=== PATIENT | male | born 1960 | race Hispanic/Latino ===

== ENCOUNTER 2022-01-28 21:11 | Emergency (ER) | payer BC, OTHER ==
--- OUTSIDE RECORDS SUMMARY | 2022-01-28 21:15 | XMS REPORT | Continuity of Care Document ---
:1960 Author Organization [facility] t Address Critical access hospital [facility] [facility] [address] [place] [id number] Care Team Providers Name Role Phone STEPHEN BARAJAS Attending Clinician Unavailable Problems This patient has no known problems. Allergies, Adverse Reactions, Alerts This patient has no known allergies or adverse reactions. Medications This patient has no known medications. Procedures This patient has no known procedures. Results Test Description Test Time Test Comments Results Result Comments Source B-TYPE NATRIURETIC FACTOR (BNP) 2017-05-26 07:35:00 Test Item Value Reference Range Interpretation Comme nts B-TYPE NATRIURETIC PEPTIDE (BEAKER) (test code = 700) < pg/mL 0-100 [id number] 07:33:00 Test Item Value Reference Range Interpretation Comments MAGNESIUM (BEAKER) (test code = 2.1 mg/dL 1.6-2.6 627) COMPREHENSIVE METABOLIC [id number] 07:33:00 Test Item Value Reference Range Interpretation Comments TOTAL PROTEIN 7.9 gm/dL 6.0-8.3 (BEAKER) (test code = 770) ALBUMIN (BEAKER) 4.0 g/dL 3.5-5.0 (test code = 1145) ALKALINE PHOSPHATASE 110 U/L 40-150 (BEAKER) (test code = 346) BILIRUBIN TOTAL 0.3 mg/dL 0.2-1.2 (BEAKER) (test code = 377) SODIUM (BEAKER) (test 136 meq/L 136-145 code = 381) POTASSIUM (BEAKER) 4.1 meq/L 3.5-5.1 (test code = 379) CHLORIDE (BEAKER) 100 meq/L 98-107 (test code = 382) CO2 (BEAKER) (test 24 meq/L 22-29 code = 355) BLOOD UREA NITROGEN 15 mg/dL 7-21 (BEAKER) (test code = 354) CREATININE (BEAKER) 0.98 mg/dL 0.57-1.25 (test code = 358) GLUCOSE RANDOM 312 mg/dL 70-105 H (BEAKER) (test code = 652) CALCIUM (BEAKER) 9.6 mg/dL 8.4-10.2 (test code = 697) AST (SGOT) (BEAKER) 13 U/L 5-34 (test code = 353) ALT (SGPT) (BEAKER) 15 U/L 6-55 (test code = 347) EGFR (BEAKER) (test 79 mL/min/1.73 ESTIMA JORGE GFR IS code = 1092) sq m NOT ACCURATE CREATININE CLEARANCE IN PREDICTING GLOMERULAR FILTRATION RATE . ESTIMATED GFR I S NOT APPLICABLE FOR DIALYSIS PATIEN TS. TROPONIN [id number] 07:27:00 Test Item Value Reference Range Interpretation Comments TROPONIN I (BEAKER) (test code = 397) < ng/mL 0.00-0.03 Effective 10/13/2014: Reference Range ChangeNew: 0.00-0.03 Previous 0.00- 0.15Troponin I (TnI) levels must be interpreted in the context of the presenting symptoms and the clinical findings. Elevated TnI levels indicate myocardial damage, but are not specific for ischemic heart disease. Elevated TnI levels are seen in patients with other cardiac conditions (including myocarditis and congestive heartfailure), and slight TnI elevations occur in patients with other conditions, including sepsis, renalfailure, acidosis, acute neurological disease, and persistent tachyarrhythmia.BLOOD GAS, [id number] 07:07:00 Test Item Value Reference Range Interpretation Comments PH VENOUS (BEAKER) (test code = 7.41 7.32-7.42 701) PCO2 VENOUS (BEAKER) (test code = 46 mmHg 41-51 755) PO2 VENOUS (BEAKER) (test code = 33 mmHg 25-40 702) O2 SATURATION VENOUS (BEAKER) 67.5 % 40.0-70.0 (test code = 703) HCO3 VENOUS (BEAKER) (test code = 29 mmol/L 21-29 705) BASE EXCESS VENOUS (BEAKER) (test 2.7 mmol/L -2.0-3.0 code = 704) PATIENT TEMPERATURE (BEAKER) (test 36.0 C code = 1818) FIO2 (BEAKER) (test code = 1819) 21.0 % KETONE, [id number] 07:06:00 Test Item Value Reference Range Interpretation Comments KETONES, BLOOD (BEAKER) (test code 0.6 mmol/L <0.4 H = 1103) CBC W/PLT COUNT & AUTO [id number] 07:05:00 Test Item Value Reference Range Interpretation Comments WHITE BLOOD CELL COUNT (BEAKER) 15.1 K/ L 4.0-10.0 H (test code = 775) RED BLOOD CELL COUNT (BEAKER) 4.99 M/ L 4.20-5.80 (test code = 761) HEMOGLOBIN (BEAKER) (test code = 14.3 GM/DL 13.0-16.8 410) HEMATOCRIT (BEAKER) (test code = 44.3 % 40.0-50.0 411) MEAN CORPUSCULAR VOLUME (BEAKER) 88.7 fL 82.0-98.0 (test code = 753) MEAN CORPUSCULAR HEMOGLOBIN 28.7 pg 27.0-33.0 (BEAKER) (test code = 751) MEAN CORPUSCULAR HEMOGLOBIN CONC 32.3 GM/DL 32.0-36.0 (BEAKER) (test code = 752) RED CELL DISTRIBUTION WIDTH 10.9 % 10.3-14.2 (BEAKER) (test code = 412) PLATELET COUNT (BEAKER) (test 480 K/CU MM 150-430 H code = 756) MEAN PLATELET VOLUME (BEAKER) 7.3 fL 6.5-10.5 (test code = 754) NUCLEATED RED BLOOD CELLS 0 /100 WBC 0-0 (BEAKER) (test code = 413) NEUTROPHILS RELATIVE PERCENT 71 % (BEAKER) (test code = 429) LYMPHOCYTES RELATIVE PERCENT 20 % (BEAKER) (test code = 430) MONOCYTES RELATIVE PERCENT 7 % (BEAKER) (test code = 431) EOSINOPHILS RELATIVE PERCENT 2 % (BEAKER) (test code = 432) BASOPHILS RELATIVE PERCENT 0 % (BEAKER) (test code = 437) NEUTROPHILS ABSOLUTE COUNT 10.70 K/ L 1.80-8.00 H (BEAKER) (test code = 670) LYMPHOCYTES ABSOLUTE COUNT 2.95 K/ L 1.48-4.50 (BEAKER) (test code = 414) MONOCYTES ABSOLUTE COUNT (BEAKER) 1.07 K/ L 0.00-1.30 (test code = 415) EOSINOPHILS ABSOLUTE COUNT 0.30 K/ L 0.00-0.50 (BEAKER) (test code = 416) BASOPHILS ABSOLUTE COUNT (BEAKER) 0.06 K/ L 0.00-0.20 (test code = 417) 0.00
[2022-01-28] MEDS ORDERED: NA CHLORIDE 0.9% 1,000 ML ONE (22:08)
[2022-01-28] MEDS ORDERED: HYDROCODONE/APAP 5/325 MG TAB ONE (22:08)
[2022-01-28] MEDS ORDERED: ONDANSETRON 4 MG/2 ML VIAL ONE (22:08)
[2022-01-28 22:43] LABS: Absolute Lymphocytes (CBC) 1.5 K/uL (0.7-4.9); Lymphocytes % 11.4 % (15.3-44.8); MPV 8.9 fL (7.6-11.3); RBC Red Blood Cell Count 4.95 M/uL (4.33-5.43)
[2022-01-28 22:48] LABS: Protime INR 1.05
[2022-01-28 23:03] LABS: ALT/SGPT 20 U/L (12-78); AST/SGOT 11 U/L (15-37); Albumin 3.3 g/dL (3.4-5.0); Alkaline Phosphatase 88 U/L (45-117); BUN Blood Urea Nitrogen 16 mg/dL (7-18); Bicarbonate 25 mmol/L (21-32); Bilirubin Direct 0.2 mg/dL (0-0.2); Bilirubin Total 0.8 mg/dL (0.2-1.0); Glucose Level 223 mg/dL (74-106); Potassium 3.8 mmol/L (3.5-5.1); Protein, Total 7.6 g/dL (6.4-8.2); Sodium Level 136 mmol/L (136-145)
[2022-01-28 23:18] LABS: Urine Blood Negative (Negative); Urine Glucose 2+ (Negative); Urine Protein 1+ (Negative); Urine Specific Gravity 1.025 (1.005-1.030)
--- NOTE | 2022-01-29 00:02 | ER ---
Nurse's Notes [facility] Name: Fox Rosas Age: 62 yrs Sex: Male : 1960 Arrival Date: 01/28/2022 Time: 21:16 Bed 5 Private MD: Diagnosis: Acute sinusitis, unspecified;Toothache Presentation: 01/28 21:33 Chief complaint: Patient states: "My left side of my check hurts. I don't know if it is tw5 sinus, but I also have a toothache at that side as well. It is making the whole left side of my head hurt. It radiates to the back of my neck.". Chief complaint: Patient states: "I was also taking my 's Augmentin to see if that would help. ". Coronavirus screen: Vaccine status: Patient reports being unvaccinated. Ebola Screen: Patient negative for fever greater than or equal to 101.5 degrees Fahrenheit, and additional compatible Ebola Virus Disease symptoms Patient denies exposure to infectious person. Patient denies travel to an Ebola-affected area in the 21 days before illness onset. Initial Sepsis Screen: Does the patient meet any 2 criteria? No. Patient's initial sepsis screen is negative. Does the patient have a suspected source of infection? No. Patient's initial sepsis screen is negative. Risk Assessment: Do you want to hurt yourself or someone else? Patient reports no desire to harm self or others. Onset of symptoms was January 26, 2022. 21:33 Acuity: MATTI 3 tw5 21:33 Method Of Arrival: Ambulatory tw5 Triage Assessment: 21:37 Headache History: Denies prior headaches. General: Appears uncomfortable, Behavior is tw5 calm, cooperative, appropriate for age. Pain: Pain currently is 8 out of 10 on a pain scale. Pain began 2-3 days ago. Also complains of photophobia. Neuro: Level of Consciousness is awake, alert, obeys commands, Oriented to person, place, time, situation. Historical: - Allergies: 21:37 No Known Allergies; tw5 - Home Meds: 21:37 insulin [Active]; tw5 - PMHx: 21:37 Diabetes mellitus; Hypercholesterolemia; Hypertensive disorder; tw5 - PSHx: 21:37 None; tw5 - Immunization history:: Flu vaccine status is unknown. - Social history:: Smoking status: Patient denies any tobacco usage or history of. Screenin:51 Abuse screen: Denies threats or abuse. Nutritional screening: No deficits noted. ll3 Tuberculosis screening: No symptoms or risk factors identified. 03 00:14 Fall Risk None identified. as6 Assessment: 01/28 21:48 General: Appears uncomfortable, Behavior is calm, cooperative. Pain: Complains of pain ll3 in forehead, left cheek and left presybeterian, Left Upper Jaw Pain currently is 8 out of 10 on a pain scale. Pain began 2-3 days ago. Is continuous. Neuro: Level of Consciousness is awake, alert, obeys commands, Oriented to person, place, time, situation, Reports dizziness, headache since 3 Days ago. Cardiovascular: Patient's skin is warm and dry. Respiratory: Respiratory effort is even, unlabored, Respiratory pattern is regular, symmetrical. EENT: Oral mucosa is moist. Poor dentition noted. States he has a tooth ache in left upper molar, swelling noted. Derm: Skin is pink, warm \\T\\ dry. Musculoskeletal: Circulation, motion, and sensation intact. 23:07 Reassessment: Patient and/or family updated on plan of care and expected duration. Pain ll3 level reassessed. Patient is alert, oriented x 3, equal unlabored respirations, skin warm/dry/pink. Patient states feeling better. Patient states symptoms have improved. Vital Signs: 21:33 BP 137 / 72; Pulse 85; Resp 18; Temp 99.5(O); Pulse Ox 96% on R/A; Weight 117.93 kg; tw5 Height 5 ft. 7 in. (170.18 cm); Pain 8/10; 23:18 BP 128 / 80; Pulse 88; Resp 17; Pulse Ox 97% on R/A; ll3 03 00:13 BP 128 / 85; Pulse 84; Resp 20 S; Pulse Ox 96% on R/A; as6 01/28 21:33 Body Mass Index 40.72 (117.93 kg, 170.18 cm) tw5 [place] Coma Score: 01/28 23:58 Eye Response: spontaneous(4). Verbal Response: oriented(5). Motor Response: obeys mh7 commands(6). Total: 15. ED Course: 21:16 Patient arrived in ED. ja2 21:37 Triage completed. tw5 21:37 Arm band placed on right wrist. tw5 21:39 Pavan Kim, DAVID is Primary Nurse. as6 21:43 Madan Curtis MD is Attending Physician. mh7 21:51 Patient has correct armband on for positive identification. Placed in gown. Bed in low ll3 position. Call light in reach. Side rails up X 1. Child being held by parent. 22:[address] ll3 22:30 Initial lab(s) drawn, by me, sent to lab. Inserted saline lock: 22 gauge in right ll3 antecubital area, using aseptic technique. Blood collected. 22:52 CT Head C Spine In Process Unspecified. EDMS 22:53 CT Maxillofacial W/cont In Process Unspecified. EDMS 23:59 Kasandra Centeno MD is Referral Physician. 7 01/29 00:00 Narendra Tam DDS is Referral Physician. 7 00:14 No provider procedures requiring assistance completed. IV discontinued, intact, as6 bleeding controlled, No redness/swelling at site. Pressure dressing applied. Administered Medications: 01/28 22:15 Drug: NS 0.9% 1000 ml Route: IV; Rate: 1000 ml; Site: right antecubital; ll3 01/29 00:13 Follow up: Response: No adverse reaction; IV Status: Completed infusion; IV Intake: as6 1000ml 01/28 22:15 Drug: [place] (HYDROcodone-acetaminophen) 5 mg-325 mg 1 tabs Route: PO; ll3 01/29 00:13 Follow up: Response: No adverse reaction; RASS: Alert and Calm (0) as6 01/28 22:18 Drug: Zofran (Ondansetron) 4 mg Route: IVP; Site: right antecubital; ll3 03 00:13 Follow up: Response: No adverse reaction as6 00:10 Drug: LevaQUIN (levofloxacin) 500 mg Route: PO; as6 00:12 Follow up: Response: No adverse reaction as6 Intake: 00:13 IV: 1000ml; Total: 1000ml. as6 Outcome: 00:01 Discharge ordered by . mh7 00:14 Discharged to home ambulatory, with family. as6 00:14 Condition: stable 00:14 Discharge instructions given to patient, Instructed on discharge instructions, follow up and referral plans. medication usage, Demonstrated understanding of instructions, follow-up care, medications, Prescriptions given X 2. 00:14 Patient left the ED. as6 Signatures: Dispatcher [employer] Madan Almonte MD MD mh7 Elena Jackson Tiffany tw5 Pavan Kim RN RN as6 Tho Chambers RN RN ll3
--- NOTE | 2022-01-29 00:03 | EDPHYS ---
Physician Documentation [facility] Name: Fox Rosas Age: 62 yrs Sex: Male : 1960 Arrival Date: 01/28/2022 Time: 21:16 Bed 5 Private MD: ED Physician Madan Curtis HPI: 01/28 22:14 This 62 yrs old Male presents to ER via Ambulatory with complaints of Headache.mh7 22:14 The patient complains of pain to the left cheek, left side of head. The patient mh7 describes the headache as intermittent, throbbing. Onset: The symptoms/episode began/occurred 3 day(s) ago. Associated signs and symptoms: Pertinent positives: nausea, Left upper tooth pain, Pertinent negatives: altered mental status, dizziness, fever, malaise, neck stiffness, paresthesias, Photophobia rash, sinus congestion, sinus tenderness, vision changes, vision loss, vomiting, weakness, vertigo. Severity of symptoms: At its worst the pain was moderate, 2 day(s) ago, in the emergency department the pain has improved, moderately. Headache History: The patient has had previous headaches and this one is less severe than previous episodes. The symptoms are alleviated by nothing. the symptoms are aggravated by foods, Touching area, chewing. Historical: - Allergies: 21:37 No Known Allergies; tw5 - Home Meds: 21:37 insulin [Active]; tw5 - PMHx: 21:37 Diabetes mellitus; Hypercholesterolemia; Hypertensive disorder; tw5 - PSHx: 21:37 None; tw5 - Immunization history:: Flu vaccine status is unknown. - Social history:: Smoking status: Patient denies any tobacco usage or history of. ROS: 22:14 Constitutional: Negative for fever, chills, and weight loss, Eyes: Negative for injury, mh7 pain, redness, and discharge, Neck: Negative for injury, pain, and swelling, Cardiovascular: Negative for chest pain, palpitations, and edema, Respiratory: Negative for shortness of breath, cough, wheezing, and pleuritic chest pain. 22:14 Back: Negative for injury and pain, : Negative for injury, bleeding, discharge, and swelling, MS/Extremity: Negative for injury and deformity, Skin: Negative for injury, rash, and discoloration. 22:14 Psych: Negative for depression, anxiety, suicide ideation, homicidal ideation, and hallucinations, Allergy/Immunology: Negative for hives, rash, and allergies, Endocrine: Negative for neck swelling, polydipsia, polyuria, polyphagia, and marked weight changes, Hematologic/Lymphatic: Negative for swollen nodes, abnormal bleeding, and unusual bruising. 22:14 Abdomen/GI: Negative for abdominal pain, vomiting, diarrhea, constipation, abdominal cramps, abdominal distension, anorexia, dysphagia, hematemesis, black/tarry stool, rectal pain, rectal bleeding, bowel incontinence, flatulence. 22:14 Neuro: Negative for altered mental status, dizziness, gait disturbance, hearing loss, loss of consciousness, numbness, seizure activity, speech changes, syncope, near syncope, tingling, tinnitus, tremor, visual changes, weakness. Exam: 22:14 Constitutional: This is a well developed, well nourished patient who is awake, alert, mh7 and in no acute distress. 22:14 Eyes: Pupils equal round and reactive to light, extra-ocular motions intact. Lids and lashes normal. Conjunctiva and sclera are non-icteric and not injected. Cornea within normal limits. Periorbital areas with no swelling, redness, or edema. 22:14 Chest/axilla: Normal chest wall appearance and motion. Nontender with no deformity. No lesions are appreciated. Cardiovascular: Regular rate and rhythm with a normal S1 and S2. No gallops, murmurs, or rubs. Normal PMI, no JVD. No pulse deficits. Respiratory: Lungs have equal breath sounds bilaterally, clear to auscultation and percussion. No rales, rhonchi or wheezes noted. No increased work of breathing, no retractions or nasal flaring. Abdomen/GI: Soft, non-tender, with normal bowel sounds. No distension or tympany. No guarding or rebound. No evidence of tenderness throughout. Back: No spinal tenderness. No costovertebral tenderness. Full range of motion. Skin: Warm, dry with normal turgor. Normal color with no rashes, no lesions, and no evidence of cellulitis. MS/ Extremity: Pulses equal, no cyanosis. Neurovascular intact. Full, normal range of motion. Neuro: Awake and alert, GCS 15, oriented to person, place, time, and situation. Cranial nerves II-XII grossly intact. Motor strength 5/5 in all extremities. Sensory grossly intact. Cerebellar exam normal. Normal gait. Psych: Awake, alert, with orientation to person, place and time. Behavior, mood, and affect are within normal limits. 22:14 Head/face: Noted is tenderness, that is moderate, of the left cheek. 22:14 Head/face: Noted is Left scalp tenderness. 22:14 ENT: External ear(s): are unremarkable, Ear canal(s): are normal, clear, TM's: are normal, Nose: is normal, Mouth: is normal, Posterior pharynx: is normal, airway is patent, Dental exam: abscess, is not appreciated, cellulitis, is not appreciated, dental caries, that is mild, specifically in the upper right second molar (#2), upper right first molar (#3), upper left second molar (#15), upper left third molar (#16), lower right second molar (#31) and lower right third molar (#32), fractured teeth are noted, not appreciated, gum swelling, not appreciated, malocclusion, is not appreciated, pain, that is moderate, specifically in the upper left second molar (#15), Voice: is normal. 22:14 ENT: Nares patent. No nasal discharge, no septal abnormalities noted. Tympanic mh7 membranes are normal and external auditory canals are clear. Oropharynx with no redness, swelling, or masses, exudates, or evidence of obstruction, uvula midline. Mucous membranes moist. Neck: Trachea midline, no thyromegaly or masses palpated, and no cervical lymphadenopathy. Supple, full range of motion without nuchal rigidity, or vertebral point tenderness. No Meningismus. Vital Signs: 21:33 BP 137 / 72; Pulse 85; Resp 18; Temp 99.5(O); Pulse Ox 96% on R/A; Weight 117.93 kg; tw5 Height 5 ft. 7 in. (170.18 cm); Pain 8/10; 23:18 BP 128 / 80; Pulse 88; Resp 17; Pulse Ox 97% on R/A; ll3 0306 00:13 BP 128 / 85; Pulse 84; Resp 20 S; Pulse Ox 96% on R/A; as6 01/28 21:33 Body Mass Index 40.72 (117.93 kg, 170.18 cm) tw5 [place] Coma Score: 01/28 23:58 Eye Response: spontaneous(4). Verbal Response: oriented(5). Motor Response: obeys [facility] commands(6). Total: 15. MDM: 23:58 Differential diagnosis: cluster headache, migraine, sinusitis, tension headache, Dental mh7 pain. Data reviewed: vital signs, nurses notes, lab test result(s), CBC, electrolytes, urinalysis, radiologic studies, CT scan. Data interpreted: Pulse oximetry: on room air is 97 %. Interpretation: normal. Counseling: I had a detailed discussion with the patient and/or guardian regarding: the historical points, exam findings, and any diagnostic results supporting the discharge/admit diagnosis, lab results, radiology results, the need for outpatient follow up, an ENT specialist. Response to treatment: the patient's symptoms have resolved after treatment, the patient's blood pressure is in an acceptable range, mental status has returned to baseline, the patient no longer shows bradycardia, the patient is not short of breath, the patient is not tachycardic, the patient's pain is gone, the patient's temperature has normalized. 01/29 00:01 Patient medically screened. [facility] 01/28 21:54 Order name: CBC with Diff [facility] 01/28 21:54 Order name: Basic Metabolic Panel [facility] 01/28 21:54 Order name: Protime (+inr); Complete Time: 23:03 [facility] 01/28 21:54 Order name: Ptt, Activated; Complete Time: 23:03 [facility] 01/28 21:54 Order name: LFT's; Complete Time: 23:03 [facility] 01/28 21:55 Order name: CBC with Automated Diff; Complete Time: 23:03 [facility] 01/28 21:55 Order name: Basic Metabolic Panel; Complete Time: 23:03 [facility] 01/28 22:06 Order name: CT Head C Spine [facility] 01/28 22:06 Order name: CT Maxillofacial W/cont [facility] 01/28 23:17 Order name: Urine Dipstick-Ancillary; Complete Time: 23:36 [facility] 01/28 21:57 Order name: Saline Lock; Complete Time: 22:30 [facility] 01/28 23:04 Order name: Urine Dipstick-Ancillary (obtain specimen); Complete Time: 23:18 [facility] Administered Medications: 01/28 22:15 Drug: NS 0.9% 1000 ml Route: IV; Rate: 1000 ml; Site: right antecubital; ll3 01/29 00:13 Follow up: Response: No adverse reaction; IV Status: Completed infusion; IV Intake: as6 1000ml 01/28 22:15 Drug: [place] (HYDROcodone-acetaminophen) 5 mg-325 mg 1 tabs Route: PO; ll3 01/29 00:13 Follow up: Response: No adverse reaction; RASS: Alert and Calm (0) as6 01/28 22:18 Drug: Zofran (Ondansetron) 4 mg Route: IVP; Site: right antecubital; ll3 01/29 00:13 Follow up: Response: No adverse reaction as6 00:10 Drug: LevaQUIN (levofloxacin) 500 mg Route: PO; as6 00:12 Follow up: Response: No adverse reaction as6 Disposition Summary: 01/29/22 00:01 Discharge Ordered Location: Home [facility] Problem: new [facility] Symptoms: have improved [facility] Condition: Stable [facility] Diagnosis - Acute sinusitis, unspecified 7 - Toothache [facility] Followup: [facility] - With: Private Physician - When: 1 - 2 days - Reason: Worsening of condition, Recheck today's complaints, Continuance of care, Re-evaluation by your physician Followup: [facility] - With: Kasandra Centeno MD - When: 2 - 3 days - Reason: Worsening of condition, Recheck today's complaints Followup: [facility] - With: Narendra Tam DDS - When: 2 - 3 days - Reason: Worsening of condition, Recheck today's complaints Discharge Instructions: - Discharge Summary Sheet [facility] - Sinusitis, Adult, [id number] [facility] - Dental Pain, [id number] [facility] Forms: - Medication Reconciliation Form [facility] - Thank You Letter [facility] - Antibiotic Education [facility] - Prescription Opioid Use [facility] Prescriptions: - Ibuprofen 600 mg Oral Tablet - take 1 tablet by ORAL route every 8 hours As needed take with food; 15 tablet; 7 Refills: 0, Product Selection Permitted - levofloxacin 500 mg Oral Tablet - take 1 tablet by ORAL route once daily for 10 days; 10 tablet; Refills: 0, [facility] Product Selection Permitted Signatures: Dispatcher [employer] Madan Almonte MD MD mh7 Yocasta Somers tw5 Pavan Kim RN RN as6 Tho Chambers RN RN ll3 Corrections: (The following items were deleted from the chart) 00:06 00:01 Dental caries, unspecified [email or web address]
[2022-01-29] MEDS ORDERED: levoFLOXacin 250 MG TAB ONE (00:04)
[2022-01-29 00:43] VITALS: TEMP 99.5
[2022-01-29 00:46] VITALS: BP 128/85; O2SAT 96
--- NOTE | 2022-01-30 10:27 | RAD REPORT ---
EXAM DESCRIPTION: CT - [id number] - 01/29/2022 6:24 am CLINICAL HISTORY: 62 years Male PAIN COMPARISON: None. TECHNIQUE: Contiguous axial CT images obtained through the brain without IV contrast. Contiguous a xial images obtained through the cervical spine without IV contrast. Sagittal and coronal reformatted images obtained. This exam was performed according to our department optimization program which includes automated exp osure control, adjustment of the mA and/or kv according to patient size and/or use of iterative recon struction technique. FINDINGS: The ventricles and sulci appear unremarkable. No abnormal areas of decreased density are identified. No mass lesions. No acute hemorrhage. Opacification of the left maxillary sinus and multiple left ethmoid air cells. Mild mucosal thickenin g in the inferior left frontal sinus. The nasal turbinates appear thickened which may be from inflamm atory change. No depressed calvarial fractures. Straightening of the normal lordosis. Vertebral body alignment is unremarkable. No acute fractures. Mild degenerative changes. There does not appear to be significant spinal or foraminal stenosis. IMPRESSION: 1. No acute intracranial abnormality is identified. 2. No acute cervical spinal fracture is identified. 3. Left paranasal sinus inflammatory changes. Electronically signed by: Yoseph Renee MD 01/28/2022 11:10 PM [facility] Due to temporary technical issues with the PACS/Fluency reporting system, reports are being signed by the in house radiologist without review as a courtesy to ensure prompt reporting. The interpreting r adiologist is fully responsible for the content of the report.
--- NOTE | 2022-01-30 10:51 | RAD REPORT ---
EXAM DESCRIPTION: CT - Maxillofacial W/Cont - 01/29/2022 6:23 am CLINICAL HISTORY: 62 years,Male,FACIAL PAIN COMPARISON: None. TECHNIQUE: Contiguous axial images were obtained through the maxillofacial region following IV contr ast. Reformatted images obtained. This exam was performed according to our department optimization program which includes automated exp osure control, adjustment of the mA and/or kv according to patient size and/or use of iterative recon struction technique. FINDINGS: The visualized intracranial structures and post septal orbits appear unremarkable. There is opacification of the left maxillary sinus and multiple left ethmoid air cells. There is muco verna thickening in the inferior left frontal sinus. The left nasal turbinates appear enlarged which is likely from inflammatory change. No acute fracture is identified. Mild degenerative changes in the cervical spine. IMPRESSION: 1. There is opacification of the left maxillary sinus and multiple left ethmoid air ce lls. There is mucosal thickening in the inferior left frontal sinus. 2. The left nasal turbinates appear enlarged which is likely from inflammatory change. Electronically signed by: Yoseph Renee MD 01/28/2022 11:03 PM DEAN OF EDUCATION Due to temporary technical issues with the PACS/Fluency reporting system, reports are being signed by the in house radiologist without review as a courtesy to ensure prompt reporting. The interpreting r adiologist is fully responsible for the content of the report.
== END 2022-01-29 00:14 | disposition home or self-care (01) ==
LOC: ER 21:11
DX: J01.90 Acute sinusitis, unspecified (principal); K08.89 Other specified disorders of teeth and supporting structures; I10 Essential (primary) hypertension; E11.9 Type 2 diabetes mellitus without complications; Z79.4 Long term (current) use of insulin
CPT/HCPCS: 96361; 85025; 80048; 36415; 85610; 80076; 85730; 81003; 70450; 72125; 70487; 96374; 99284; Q9967; J7030; J2405

== ENCOUNTER → 2023-12-06 | Emergency (ER) | payer BC, OTHER ==
[~2023-12-06] MED LIST: MUPIROCIN 2% OINT 22GM TUBE TOP ONE
--- NOTE | 2023-12-06 18:17 | RAD REPORT ---
EXAM DESCRIPTION: RAD - Foot Right 3 View - 12/06/2023 4:58 pm CLINICAL HISTORY: right third toe pain COMPARISON: FOOT W OBLIQUES dated 04/17/2008 TECHNIQUE: Right foot, 3 views. FINDINGS: No fracture, dislocation or periosteal reaction. Moderate calcaneal spur. Soft tissue swelling along the medial foot. IMPRESSION: Soft tissue swelling, without acute osseous abnormality.
--- NOTE | 2023-12-06 18:46 | EDPHYS ---
Physician Documentation [facility] Name: Fox Rosas Age: 63 yrs Sex: Male : 1960 Arrival Date: 12/06/2023 Time: 15:32 Bed 10 Private MD: ED Physician Pily White HPI: 12/06 16:40 This 63 yrs old Male presents to ER via Ambulatory with complaints of Toe pain.cp 16:40 The patient presents with pain, that is acute. cp 16:40 The complaints affect the right third toe. Context: resulted from an unknown cause. cp Onset: The symptoms/episode began/occurred 3 day(s) ago. Associated signs and symptoms: Pertinent positives: pain open wound, swelling. Historical: - Allergies: 16:21 No Known Allergies; ph - PMHx: 16:21 diabetes mellitus; Hypercholesterolemia; Hypertensive disorder; Asthma; ph - Immunization history:: Client reports having NOT received the Covid vaccine. - Social history:: Smoking status: Patient denies any tobacco usage or history of. ROS: 16:45 MS/extremity: Positive for pain, swelling, tenderness, of the right third toe, Negative cp for injury or acute deformity, decreased range of motion, 16:45 Constitutional: Negative for body aches, chills, fever, cp 16:45 Cardiovascular: Negative for chest pain, palpitations, 16:45 Respiratory: Negative for cough, shortness of breath, wheezing, 16:45 All other systems are negative, Exam: 16:50 Constitutional: The patient appears in no acute distress, alert, awake, comfortable, cp non-toxic, well developed, well nourished, 16:50 Head/Face: Normocephalic, atraumatic. cp 16:50 Eyes: Periorbital structures: appear normal, Conjunctiva: normal, no exudate, no injection, Sclera: no appreciated abnormality, Lids and lashes: appear normal, bilaterally, 16:50 ENT: External ear(s): are unremarkable, Nose: is normal, Mouth: Lips: moist, Oral mucosa: pink and intact, moist, Posterior pharynx: is normal, airway is patent, no erythema, no exudate, 16:50 Chest/axilla: Inspection: normal, 16:50 Cardiovascular: Rate: normal, Rhythm: regular, 16:50 Respiratory: the patient does not display signs of respiratory distress, Respirations: normal, no use of accessory muscles, no retractions, labored breathing, is not present, Breath sounds: are clear throughout, no decreased breath sounds, no stridor, no wheezing, 16:50 Abdomen/GI: Exam negative for discomfort, distension, guarding, Inspection: abdomen appears normal, 16:50 Musculoskeletal/extremity: Extremities: noted in the right foot: tenderness, mild swelling, mild erythema noted of right third toe, small open wound noted plantar side distal phalanx with minimal drainage, Vital Signs: 16:18 BP 144 / 96; Pulse 85; Resp 17; Temp 98.2; Pulse Ox 95% on R/A; Weight 121.11 kg (R); ph Height 5 ft. 7 in. ; Pain 3/10; 16:18 Body Mass Index 41.82 (121.11 kg, 170.18 cm) ph 16:18 Pain Scale: Adult ph MDM: 16:24 Patient medically screened. cp 18:45 Data reviewed: vital signs, nurses notes, radiologic studies, plain films. cp 18:45 Differential diagnosis: fracture, cellulitis, abscess, osteomyelitis, sepsis. cp Consideration of Admission/Observation Escalation of care including admission/observation considered. Counseling: I had a detailed discussion with the patient and/or guardian regarding the historical points, exam findings, and any diagnostic results supporting the discharge/admit diagnosis, radiology results, the need for outpatient follow up, a general surgeon, to return to the emergency department if symptoms worsen or persist or if there are any questions or concerns that arise at home. 12/06 16:23 Order name: XRAY Foot RIGHT 3 View; Complete Time: 18:19 cp 12/06 18:19 Interpretation: Report reviewed. cp 12/06 18:20 Order name: Wound dressing; Complete Time: 19:12 cp Administered Medications: 19:10 Drug: Bacitracin Topical Ointment (500 unit/g) 1 application Topical once Route: cm10 Topical; Site: affected area; Disposition Summary: 12/06/23 18:46 Discharge Ordered Notes: Location: Home cp Problem: new cp Symptoms: have improved cp Condition: Stable cp Diagnosis - Cellulitis of right toe cp - Open wound of toe without damage to nail - right third toe cp Followup: cp - With: Hussain Patel MD - When: 5 - 6 days - Reason: Wound Recheck Discharge Instructions: - Discharge Summary Sheet cp - Cellulitis, Adult cp - Wound Infection cp - Wound Care, Adult cp Forms: - Medication Reconciliation Form cp - Thank You Letter cp - Antibiotic Education cp - Prescription Opioid Use cp - Patient Portal Instructions cp - Leadership Thank You Letter cp - Work release form cm10 Prescriptions: - albuterol sulfate 90 mcg/actuation Inhalation HFA Aerosol Inhaler - inhale 1 puff INHALATION route every 4 to 6 hours; 1 unit; Refills: 0, Product cp Selection Permitted - mupirocin 2 % Topical ointment - apply 1 application TOPICAL route 3 times per day; 15 gram tube; Refills: 0, cp Product Selection Permitted - Augmentin 875-125 mg Oral Tablet - take 1 tablet ORAL route every 12 hours for 10 days; 20 tablet; Refills: 0, cp Product Selection Permitted Signatures: Dispatcher [employer] Enedelia Garvin RN RN ph Page, Corey, PA PA cp Martinez, Clarissa RN RN cm10
--- NOTE | 2023-12-06 18:46 | ER ---
Nurse's Notes [facility] Name: Fox Rosas Age: 63 yrs Sex: Male : 1960 Arrival Date: 12/06/2023 Time: 15:32 Bed 10 Private MD: Diagnosis: Cellulitis of right toe;Open wound of toe without damage to nail-right third toe Presentation: 12/06 16:18 Chief complaint: Patient states: 3rd right toe pain, redness noticed about 2-3 days ph ago. Diabetic. Coronavirus screen: Vaccine status: Patient reports being unvaccinated. Ebola Screen: Patient denies travel to an Ebola-affected area in the 21 days before illness onset. Initial Sepsis Screen: Does the patient meet any 2 criteria? No. Patient's initial sepsis screen is negative. Does the patient have a suspected source of infection? No. Patient's initial sepsis screen is negative. Risk Assessment: Do you want to hurt yourself or someone else? Patient reports no desire to harm self or others. Onset of symptoms was November 2022. 16:18 Method Of Arrival: Ambulatory ph 16:18 Acuity: MATTI 3 ph Triage Assessment: 18:36 General: Appears in no apparent distress. comfortable, Behavior is calm, cooperative. cm10 Pain: Complains of pain in plantar aspect of right third toe. EENT: No deficits noted. No signs and/or symptoms were reported regarding the EENT system. Neuro: No deficits noted. Level of Consciousness is awake, alert, obeys commands, Oriented to person, place, time, situation. Respiratory: No deficits noted. Airway is patent Respiratory effort is even, unlabored, Respiratory pattern is regular, symmetrical. GI: No deficits noted. No signs and/or symptoms were reported involving the gastrointestinal system. : No deficits noted. No signs and/or symptoms were reported regarding the genitourinary system. Derm: No deficits noted. Wound noted plantar aspect of right third toe. Musculoskeletal: No deficits noted. No signs and/or symptoms reported regarding the musculoskeletal system. Range of motion: intact in all extremities. Historical: - Allergies: 16:21 No Known Allergies; ph - PMHx: 16:21 diabetes mellitus; Hypercholesterolemia; Hypertensive disorder; Asthma; ph - Immunization history:: Client reports having NOT received the Covid vaccine. - Social history:: Smoking status: Patient denies any tobacco usage or history of. Screenin:36 [facility] ED Fall Risk Assessment (Adult) History of falling in the last 3 months, cm10 including since admission No falls in past 3 months (0 pts). [facility] ED Fall Risk Assessment (Adult) Confusion or Disorientation No (0 pts) Intoxicated or Sedated No (0 pts) Impaired Gait No (0 pts) Mobility Assist Device Used No (0 pt) Altered Elimination No (0 pt) Score/Fall Risk Level 0 - 2 = Low Risk Oriented to surroundings, Maintained a safe environment, Hourly rounding (assess needs \T\ fall precautionary measures) done. Abuse screen: Denies threats or abuse. Denies injuries from another. Nutritional screening: No deficits noted. Tuberculosis screening: No symptoms or risk factors identified. Vital Signs: 16:18 BP 144 / 96; Pulse 85; Resp 17; Temp 98.2; Pulse Ox 95% on R/A; Weight 121.11 kg (R); ph Height 5 ft. 7 in. ; Pain 3/10; 16:18 Body Mass Index 41.82 (121.11 kg, 170.18 cm) ph 16:18 Pain Scale: Adult ED Course: 15:49 Patient arrived in ED. im 16:05 Beltran Morales PA is PHCP. cp 16:05 Pily White MD is Attending Physician. cp 16:21 Triage completed. ph 16:21 Arm band placed on right wrist. ph 17:00 XRAY Foot RIGHT 3 View In Process Unspecified. EDMS 18:35 Rose De Paz, RN is Primary Nurse. cm10 18:36 Patient has correct armband on for positive identification. Bed in low position. Call cm10 light in reach. Provided Education on: ER process and procedures.. 18:42 No provider procedures requiring assistance completed. Patient did not have IV access cm10 during this emergency room visit. 18:44 Hussain Patel MD is Referral Physician. cp 19:11 Wound care: to located on plantar aspect of right third toe was dressed with Neosporin, cm10 Kerlix, Patient tolerated well. Administered Medications: 19:10 Drug: Bacitracin Topical Ointment (500 unit/g) 1 application Topical once Route: cm10 Topical; Site: affected area; Medication: 18:36 VIS not applicable for this client. cm10 Outcome: 18:46 Discharge ordered by . cp 19:17 Discharged to home ambulatory, with family, cm10 19:17 Condition: good 19:17 Discharge instructions given to patient, Instructed on discharge instructions, follow up and referral plans. medication usage, wound care, Demonstrated understanding of instructions, follow-up care, medications, wound care, Prescriptions given X 3, 19:18 Patient left the ED. cm10 Signatures: Dispatcher [employer] EDEnedelia Watkins, RN RN noemí Morales, Beltran, FERNANDO PA Margaret Chamberlain Clarissa, RN RN cm10
[2023-12-07 00:38] VITALS: BP 144/96; TEMP 98.2; O2SAT 95
== END ==
LOC: ER 15:32
DX: L03.031 Cellulitis of right toe (principal)
CPT/HCPCS: 99283

== ENCOUNTER 2025-03-28 13:55 | Inpatient (IN) | payer OTHER, SELFPAY ==
[2025-03-28 15:26] LABS: ALT/SGPT 22 U/L (16-61); Albumin 3.3 g/dL (3.4-5.0); Albumin/Globulin Ratio 0.9 (1.1-1.8); Alkaline Phosphatase 119 U/L (45-117); Anion Gap 8.7 mEq/L (5.0-15.0); BUN Blood Urea Nitrogen 19 mg/dL (7-18); Bicarbonate 28 mEq/L (21-32); Bilirubin Total 0.4 mg/dL (0.2-1.0); Globulin 3.8 g/dL (2.3-3.5); Glomerular Filtration Rate 102 ml/min (=/>90); Glucose Level 140 mg/dL (74-106); Potassium 3.7 mEq/L (3.5-5.1); Protein, Total 7.1 g/dL (6.4-8.2); Sodium Level 139 mEq/L (136-145)
[2025-03-28 15:27] LABS: Absolute Basophils 0.1 K/uL (0-0.5); Absolute Eosinophils 0.2 K/uL (0-0.5); Absolute Lymphocytes (CBC) 2.3 K/uL (0.7-4.9); Basophils % 0.6 % (0-1.3); Eosinophils % 1.5 % (0-4.4); Hematocrit 40.5 % (39.6-49.0); Hemoglobin 14.2 g/dL (13.6-17.9); Lymphocytes % 21.6 % (15.3-44.8); MCH 30.2 pg (27.0-35.0); MCV 86.2 fL (80-100); Monocytes % 9.4 % (3.3-12.3); Neutrophils % 66.9 % (41.7-73.7); Platelets 315 thou/uL (152-406); Red Cell Distribution Width 12.5 % (12.1-15.2)
[2025-03-28 15:30] LABS: PT Prothrombin Time 10.8 SECONDS (10-13.0); PTT, Activated Partial Thromb 30.2 SECONDS (27.2-37.4); Protime INR 0.94
[2025-03-28 15:44] LABS: AST/SGOT < 10 U/L (15-37)
--- NOTE | 2025-03-28 16:05 | EDPHYS ---
Physician Documentation [facility] Name: Fox Rosas Age: 65 yrs Sex: Male : 1960 Arrival Date: 03/28/2025 Time: 13:55 Bed 5 Private MD: ED Physician Beltran López HPI: 03/28 14:39 This 65 yrs old Male presents to ER via Ambulatory with complaints of Wound kb Check - right foot toes. 14:39 Pt is a 65 year old male who presents for wound to right third digit on foot that kb started one week ago. States he was working in the rain, his boots got wet and he continued to work which caused the wound. Denies any fever. States the pain, swelling has been getting worse. . Historical: - Allergies: 14:13 No Known Allergies; iw - PMHx: 14:13 Asthma; diabetes mellitus; Hypercholesterolemia; Hypertensive disorder; iw - PSHx: 14:13 None; iw - Immunization history:: Adult Immunizations not up to date. - Infectious Disease History:: Denies. - Social history:: Smoking status: Patient denies any tobacco usage or history of. ROS: 14:39 Constitutional: As per HPI kb Exam: 14:39 Constitutional: This is a well developed, well nourished patient who is awake, alert, kb and in no acute distress. Head/Face: Normocephalic, atraumatic. ENT: Moist Mucous membranes Cardiovascular: Regular rate Respiratory: Respirations even and unlabored. No increased work of breathing. Talking in full sentences Skin: Warm, dry with normal turgor. Normal color. Neuro: Awake and alert, GCS 15, oriented to person, place, time, and situation. 14:39 Musculoskeletal/extremity: Extremities: grossly normal except: noted in the right third toe: erythema, pain, swelling, tenderness, ROM: intact in all extremities, Circulation is intact in all extremities. Sensation intact. Weight bearing: able to fully bear weight, 15:30 ECG was reviewed by the Attending Physician. kb Vital Signs: 14:12 BP 155 / 85; Pulse 88; Resp 16; Temp 97.9; Pulse Ox 96% on R/A; Weight 104.33 kg; iw Height 5 ft. 7 in. ; Pain 8/10; 17:43 BP 147 / 79; Pulse 65; Resp 16; Pulse Ox 97% ; bp 14:12 Body Mass Index 36.02 (104.33 kg, 170.18 cm) iw 14:12 Pain Scale: Adult iw MDM: 14:03 Medical Screening Exam initiated kb 14:42 Data reviewed: vital signs, nurses notes. kb 15:50 Differential diagnosis: diabetic wound, osteomyelitis, cellulitis. Consideration of kb Admission/Observation Patient was admitted/placed on observation. Escalation of care including admission/observation considered. Management of patient was discussed with the following: Executive Vice President And Chief Financial Officer: Dr Patel accepts pt for admission. Counseling: I had a detailed discussion with the patient and/or guardian regarding the historical points, exam findings, and any diagnostic results supporting the discharge/admit diagnosis, lab results, radiology results, the need for further work-up and treatment in the hospital. 16:04 Management of patient was discussed with the following: Hospitalist: Hospitalist team, kb accepted under Dr Taylor. 03/28 14:28 Order name: Blood Culture Adult (2) kb 03/28 14:28 Order name: CBC with Diff; Complete Time: 15:30 kb 03/28 14:28 Order name: CMP; Complete Time: 15:49 kb 03/28 14:28 Order name: Lactate w/ 2H reflex if indic.; Complete Time: 15:30 kb 03/28 14:28 Order name: Protime (+inr); Complete Time: 15:30 kb 03/28 14:28 Order name: Ptt, Activated; Complete Time: 15:30 kb 03/28 16:18 Order name: Basic Metabolic Panel EDMS 03/28 16:18 Order name: Basic Metabolic Panel EDMS 03/28 16:18 Order name: Basic Metabolic Panel EDMS 03/28 16:18 Order name: Basic Metabolic Panel EDMS 03/28 16:18 Order name: Basic Metabolic Panel EDMS 03/28 16:18 Order name: CBC with Automated Diff EDMS 03/28 16:18 Order name: CBC with Automated Diff EDMS 03/28 16:18 Order name: CBC with Automated Diff EDMS 03/28 16:18 Order name: CBC with Automated Diff EDMS 03/28 16:18 Order name: CBC with Automated Diff EDMS 03/28 16:18 Order name: Hemoglobin A1c EDMS 03/28 16:18 Order name: Hemoglobin A1c EDMS 03/28 14:28 Order name: Foot Right 3 View XRAY kb 03/28 17:37 Order name: RAD; Complete Time: 17:40 EDMS 03/28 14:28 Order name: EKG; Complete Time: 14:29 kb 03/28 14:28 Order name: Accucheck; Complete Time: 15:12 kb 03/28 14:28 Order name: Cardiac monitoring; Complete Time: 15:12 kb 03/28 14:28 Order name: EKG - Nurse/Tech; Complete Time: 15:12 kb 03/28 14:28 Order name: IV Saline Lock - Large Bore; Complete Time: 15:12 kb 03/28 14:28 Order name: Labs collected and sent; Complete Time: 15:12 kb 03/28 14:28 Order name: O2 Per Protocol; Complete Time: 15:12 kb 03/28 14:28 Order name: O2 Sat Monitoring; Complete Time: 15:12 kb 03/28 14:28 Order name: Vital Signs; Complete Time: 15:12 kb EC:30 Rate is 78 beats/min. Rhythm is regular. QRS [place] is Normal. RI interval is normal at kb 186 msec. QRS interval is normal at 104 msec. QT interval is normal at 453 msec. Administered Medications: 16:30 Drug: Cefepime IVPB 1 grams IVPB at 200 ml/hr once over 30 mins; (mix in NS 100 mL) bp Route: IVPB; Rate: 200 ml/hr; Infused Over: 30 mins; Site: right forearm; 17:44 Follow up: IV Status: Completed infusion bp 17:00 Drug: vancoMYCIN IVPB 1 grams IVPB once over 2 hrs Route: IVPB; Infused Over: 2 hrs; bp Site: right forearm; 17:44 Follow up: IV Status: Completed infusion bp Disposition Summary: 03/28/25 16:04 Hospitalization Ordered Notes: Hospitalization Status: Observation kb Provider: Jarocho Taylor Location: Telemetry/MedSurg (observation) kb Condition: Stable kb Problem: new kb Symptoms: are unchanged kb Bed/Room Type: Standard Room Assignment: 224(03/28/25 17:24) em1 Diagnosis - Cellulitis of right lower limb - third digit, right foot kb - Diabetic wound kb Forms: - Medication Reconciliation Form kb - SBAR form kb - Leadership Thank You Letter kb Addendum: 03/30/2025 01:27 Co-signature as Attending Physician, Beltran López MD I agree with the assessment and c kay plan of care. Signatures: Dispatcher [employer] EDPreeti Jones, RECONCILIATION ANALYST-C RECONCILIATION ANALYST-Ckb Beltran López MD MD cha Williams, Irene, RN RN [facility] em1 Jabier Cole, RN RN bp Corrections: (The following items were deleted from the chart) 03/28 14:29 14:29 BLOOD CULTURE*+BA.LAB.BRZ ordered. EDMS EDMS 14:29 14:29 CBC+H.LAB.BRZ ordered. EDMS EDMS 14:29 14:29 COMPREHENSIVE METABOLIC PANEL+C.LAB.BRZ ordered. EDMS EDMS 14:29 14:29 LACTATE+C.LAB.BRZ ordered. EDMS EDMS 14:29 14:29 PROTIME (+INR)+COAG.LAB.BRZ ordered. EDMS EDMS 14:29 14:29 PTT, ACTIVATED+COAG.LAB.BRZ ordered. EDMS EDMS 16:29 16:04 kb niels 17:17 16:29 429 niels em1 17:19 17:17 403 em1 em1 17:24 17:19 em1 em1
--- NOTE | 2025-03-28 16:05 | ER ---
Nurse's Notes [facility] Name: Fox Rosas Age: 65 yrs Sex: Male : 1960 Arrival Date: 03/28/2025 Time: 13:55 Bed 5 Private MD: Diagnosis: Cellulitis of right lower limb-third digit, right foot;Diabetic wound Presentation: 03/28 14:12 Chief complaint: Patient states: wound on right great toe and middle toe X 1 week. iw Coronavirus screen: At this time, the client does not indicate any symptoms associated with coronavirus-19. Ebola Screen: No symptoms or risks identified at this time. Initial Sepsis Screen: Does the patient meet any 2 criteria? No. Patient's initial sepsis screen is negative. Does the patient have a suspected source of infection? No. Patient's initial sepsis screen is negative. Risk Assessment: Do you want to hurt yourself or someone else? Patient reports no desire to harm self or others. Onset of symptoms was March 20, 2025. 14:12 Method Of Arrival: Ambulatory 14:12 Acuity: MATTI 3 Triage Assessment: 14:15 General: Appears in no apparent distress. Behavior is calm, cooperative, appropriate bp for age. Pain: Complains of pain in right foot. EENT: No deficits noted. Neuro: No deficits noted. Cardiovascular: No deficits noted. Respiratory: No deficits noted. GI: No signs and/or symptoms were reported involving the gastrointestinal system. : No signs and/or symptoms were reported regarding the genitourinary system. Derm: Wound noted right foot. Musculoskeletal: No deficits noted. Historical: - Allergies: 14:13 No Known Allergies; iw - PMHx: 14:13 Asthma; diabetes mellitus; Hypercholesterolemia; Hypertensive disorder; iw - PSHx: 14:13 None; iw - Immunization history:: Adult Immunizations not up to date. - Infectious Disease History:: Denies. - Social history:: Smoking status: Patient denies any tobacco usage or history of. Screenin:15 [facility] ED Fall Risk Assessment (Adult) History of falling in the last 3 months, bp including since admission No falls in past 3 months (0 pts) Confusion or Disorientation No (0 pts) Intoxicated or Sedated No (0 pts) Impaired Gait No (0 pts) Mobility Assist Device Used No (0 pt) Altered Elimination No (0 pt) Score/Fall Risk Level 0 - 2 = Low Risk Oriented to surroundings. Abuse screen: Denies threats or abuse. Denies injuries from another. Nutritional screening: No deficits noted. Tuberculosis screening: No symptoms or risk factors identified. Assessment: 14:15 General: Appears in no apparent distress. Behavior is calm, cooperative, appropriate bp for age. 15:00 Reassessment: Patient appears in no apparent distress at this time. Patient is alert, bp oriented x 3, equal unlabored respirations, skin warm/dry/pink. 17:00 Reassessment: REPORT FAXED 429. bp 17:27 Reassessment: ROOM REASSIGNED BY YORK MILADY, REPORT FAXED RM 224. bp Vital Signs: 14:12 BP 155 / 85; Pulse 88; Resp 16; Temp 97.9; Pulse Ox 96% on R/A; Weight 104.33 kg; iw Height 5 ft. 7 in. ; Pain 8/10; 17:43 BP 147 / 79; Pulse 65; Resp 16; Pulse Ox 97% ; bp 14:12 Body Mass Index 36.02 (104.33 kg, 170.18 cm) iw 14:12 Pain Scale: Adult iw ED Course: 13:59 Patient arrived in ED. im 14:03 Preeti Galloway FNP-C is PHCP. kb 14:03 Beltran López MD is Attending Physician. kb 14:13 Triage completed. iw 14:14 Arm band placed on. iw 14:15 Jabier Cole, RN is Primary Nurse. bp 14:15 Patient has correct armband on for positive identification. bp 14:15 Initial lab(s) drawn, by ED staff, sent to lab. Inserted saline lock: 20 gauge in right bp forearm, using aseptic technique. Blood collected. Flushed with 10 mL NS. 16:04 Jarocho Taylor is Hospitalizing Provider. kb 17:43 Patient admitted, IV remains in place. bp 17:44 No provider procedures requiring assistance completed. bp Administered Medications: 16:30 Drug: Cefepime IVPB 1 grams IVPB at 200 ml/hr once over 30 mins; (mix in NS 100 mL) bp Route: IVPB; Rate: 200 ml/hr; Infused Over: 30 mins; Site: right forearm; 17:44 Follow up: IV Status: Completed infusion bp 17:00 Drug: vancoMYCIN IVPB 1 grams IVPB once over 2 hrs Route: IVPB; Infused Over: 2 hrs; bp Site: right forearm; 17:44 Follow up: IV Status: Completed infusion bp Medication: 17:45 VIS not applicable for this client. bp Outcome: 16:04 Decision to Hospitalize by Provider. kb 17:44 Admitted to Med/surg accompanied by tech, via wheelchair, bp 17:44 Condition: stable 17:44 Instructed on the need for admit, 18:30 Patient left the ED. mb9 Signatures: Preeti Galloway, DENTAL INSURANCE COORDINATOR-C DENTAL INSURANCE COORDINATOR-Didi Pastor, RN DAVID iw Jabier Cole RN RN bp Wilkerson, Mary Beth, RN RN mb9 Margaret Huerta
[2025-03-28] MEDS ORDERED: MELATONIN 5 MG TABLET PO PRN (16:13)
[2025-03-28] MEDS ORDERED: ONDANSETRON 4 MG/2 ML VIAL IV PRN (16:13)
[2025-03-28] MEDS ORDERED: VANCOMYCIN 1 GM in NA CHLORIDE 0.9% 250 ML IVPB SCH (16:15)
--- NOTE | 2025-03-28 16:21 | P.HP ---
Certification for Inpatient Patient admitted to: Inpatient With expected LOS: >2 Midnights Patient will require the following post-hospital care: None Practitioner: I am a practitioner with admitting privileges, knowledge of patient current condition, hospital course, and medical plan of care. Services: Services provided to patient in accordance with Admission requirements found in Title 42 Section 412.3 of the Code of Federal Regulations Patient History Date of Service: 03/28/25 Reason for admission: Diabetic foot wound History of Present Illness: 65-year-old male with history of hypertension, hyperlipidemia, wcd-xdpfntx-oierbcrcu diabetes presents to the emergency department chief complaint of right third toe wound. He reports that he got a blister from wearing his boots at work about a week ago and since then it has become painful, erythematous and the blister appears infected. He was evaluated in the emergency department his labs are significant for a white blood cell count of 10.4 glucose of 140 lactic acid of 1.4 x-ray of the right foot is pending but does not appear to show any osteomyelitis per my review. He was started on broad-spectrum antibiotics in the ED, case was reviewed with general surgery by ED staff and he will be admitted for further evaluation and management of diabetic foot wound. N.p.o. for midnight in anticipation of possible incision and drainage in the morning. Allergies NKDA Allergy (Uncoded 04/10/14 16:18) Unknown Home Medications: Albuterol Inhaler [Ventolin Inhaler*] 2 inh IH QID 04/10/14 Budesonide/Formoterol Fumarate [Symbicort 160-4.5 Mcg Inhaler] 2 inh IN BID 04/10/14 Glimepiride [Amaryl*] 2 mg PO DAILY 04/10/14 Rosuvastatin [Crestor*] 5 mg PO BEDTIME 04/10/14 Sitagliptin Phos/Metformin HCl [Janumet 50-1,000 mg Tablet] 1 tab PO BID 04/10/14 lisinopriL [Prinivil*] 1 tab PO DAILY 04/10/14 Amox/Clavulanate [Augmentin 875-125 Tab] 875 mg PO BID #20 tab 04/11/14 - Past Medical/Surgical History Diabetic: Yes -: ASTHMA -: HTN -: DM -: Hyperlipidemia -: (R) knee Psychosocial/ Personal History: Lives at home with family - Social History Alcohol use: No CD- Drugs: No Caffeine use: Yes Place of Residence: Home Review of Systems 10-point ROS is otherwise unremarkable Musculoskeletal: Foot Pain, As per HPI Physical Examination - Physical Exam General: Alert, In no apparent distress, Oriented x3 HEENT: Atraumatic, PERRLA Neck: Supple, 2+ carotid pulse no bruit Respiratory: Clear to auscultation bilaterally, Normal air movement Cardiovascular: Regular rate/rhythm, Normal S1 S2 Gastrointestinal: Normal bowel sounds, No tenderness Musculoskeletal: No tenderness Integumentary: Other (Infected appearing blister to the distal tip of the right third toe) Neurological: Normal speech, Normal strength at 5/5 x4 extr - Studies Laboratory Data (last 24 hrs) 03/28/25 03/28/25 03/28/25 14:46 14:46 14:46 WBC 10.40 Hgb 14.2 Hct 40.5 Plt Count 315 PT 10.8 INR 0.94 APTT 30.2 Sodium 139 Potassium 3.7 BUN 19 H Creatinine 0.73 Glucose 140 H Total Bilirubin 0.4 AST < 10 L ALT 22 Alkaline Phosphatase 119 H Assessment and Plan - Plan Assessment: Diabetic foot wound right third toe Diabetes mellitus type 9hwt-vkanbcx-fabvzuxvv Hypertension Hyperlipidemia Plan: Diabetic foot wound right third toe Diabetes mellitus type [id number]-ksqkwwuhd Broad-spectrum antibiotics General Surgery to see for possible incision and drainage N.p.o. after midnight Sliding scale insulin, A1c in the morning Has not been on medications for around a year now, working on getting a PCP after getting a job now Hypertension Hyperlipidemia Has been noncompliant with medications previously prescribed as he did not have insurance and has not seen DrAnjum Monitor blood pressures at hospitalization, start medications as appropriate DVT PPX: SCDs full Code status: Full code Discharge Plan: Home Plan to discharge in: 72 Hours - Advance Directives Does patient have a Living Will: No Does patient have a Durable POA for Healthcare: No - Code Status/Comfort Care Code Status Assessed: Yes (Full code) Critical Care: No Time Spent Managing Pts Care (In Minutes): 67
[2025-03-28] MEDS: INSULIN REGULAR (HUMAN) 100 UNIT/ML SQ SCH (16:30)
[2025-03-28] MEDS ORDERED: VANCOMYCIN 1 GM/VIAL ONE (16:38)
[2025-03-28] MEDS ORDERED: NA CHLORIDE 0.9% 100 ML ONE (16:38)
[2025-03-28] MEDS ORDERED: NA CHLORIDE 0.9% 250 ML ONE (16:38)
[2025-03-28] MEDS ORDERED: CEFEPIME 1 GM/VIAL ONE (16:39)
[2025-03-28] MEDS ORDERED: VANCOMYCIN 1.75 GM in NA CHLORIDE 0.9% 500 ML IVPB SCH ×2 (17:00→18:00)
--- NOTE | 2025-03-28 17:37 | RAD REPORT ---
EXAMINATION: XR Foot Right 3 View CLINICAL INDICATION: Male, 65 years old. [facility] MAIN PAIN Bed Name: 5 TECHNIQUE: 3 view radiographs of the right foot were obtained. COMPARISON: 12/06/2023 FINDINGS: No evidence of fracture or dislocation. No evidence of erosions or other focal bone lesion. Soft tissue swelling about the first, third, and fourth digits, with soft tissue irregularity along the medial aspect of the big toe. Odty-hc-zukiheni degenerative changes at the first metatarsop halangeal articulation. Hallux valgus deformity with angle measuring 29 degrees. IMPRESSION: No osseous destructive changes. There there is persistent clinical concern for acute osteomyelitis, a dditional evaluation by MRI would be more helpful.
[2025-03-28] MEDS: NA CHLORIDE 0.9% 1,000 ML IV SCH (19:40)
[2025-03-28] MEDS: HYDROCODONE/APAP 5/325 MG TAB PO PRN (19:46)
[2025-03-28] MEDS ORDERED: CEFEPIME 1 GM in NA CHLORIDE 0.9% 100 ML IV SCH (21:00)
[2025-03-28 23:13] VITALS: BMI 36.0
[2025-03-29] MEDS: CEFEPIME 1 GM in NA CHLORIDE 0.9% 100 ML IV SCH (03:05)
[2025-03-29] MEDS: VANCOMYCIN 1 GM/VIAL ONE (03:20)
[2025-03-29] MEDS: NA CHLORIDE 0.9% 500 ML ONE (03:22)
[2025-03-29] MEDS: VANCOMYCIN 1.75 GM in NA CHLORIDE 0.9% 500 ML IVPB SCH (03:24)
[2025-03-29 05:47] LABS: Absolute Eosinophils 0.2 K/uL (0-0.5); Absolute Lymphocytes (CBC) 2.2 K/uL (0.7-4.9); Absolute Monocytes 0.8 K/uL (0.1-1.3); Absolute Neutrophil 4.1 K/uL (1.8-8.0); Basophils % 0.6 % (0-1.3); Eosinophils % 2.5 % (0-4.4); Hematocrit 37.4 % (39.6-49.0); Hemoglobin 13.1 g/dL (13.6-17.9); Lymphocytes % 29.9 % (15.3-44.8); MCV 85.7 fL (80-100); MPV 8.5 fL (7.6-11.3); Monocytes % 10.8 % (3.3-12.3); Neutrophils % 56.2 % (41.7-73.7); Nucleated Red Blood Cells % 0.1 % (0-0); Platelets 289 thou/uL (152-406); RBC Red Blood Cell Count 4.36 M/uL (4.33-5.43); Red Cell Distribution Width 12.6 % (12.1-15.2)
[2025-03-29 06:08] LABS: Anion Gap 7.1 mEq/L (5.0-15.0); Potassium 3.1 mEq/L (3.5-5.1)
[2025-03-29] MEDS: KCL 20 MEQ/100 mL IVPB 20 MEQ/100 ML BAG IV SCH (09:05)
--- NOTE | 2025-03-29 09:46 | P.PN ---
Date of Service: 03/29/25 Subjective: No acute events overnight No new complaints Awaiting evaluation from general surgery for possible incision and drainage/nehemias ridement ROS: 10 point ROS as noted above, otherwise negative Physical exam GEN: Alert, oriented, NAD HEENT: Normal conjunctiva, sclera anicteric CV: Regular rate and rhythm, no edema Pulm: Nonlabored respirations on room air ABD: Soft, nontender, nondistended MSK: No joint tenderness Integumentary: Blister to right third toe, additional wounds/ulcerations present on the other toes Neuro: Normal speech, normal affect Vitals reviewed Assessment: Diabetic foot wound right third toe Diabetes mellitus type [id number]-ugznduwkf Hypertension Hyperlipidemia Plan: Diabetic foot wound right third toe Diabetes mellitus type 8fht-aljuuro-njktaksmn Broad-spectrum antibiotics General Surgery to see for possible incision and drainage N.p.o. awaiting surgical evaluation Sliding scale insulin, A1c pending Has not been on medications for around a year now, working on getting a PCP after getting a job now Hypertension Hyperlipidemia Has been noncompliant with medications previously prescribed as he did not have insurance and has not seen DrAnjum Monitor blood pressures at hospitalization, start medications as appropriate DVT PPX: SCDs full Code status: Full code Discharge Plan: Home Plan to discharge in: 72 Hours Time Spent Managing Pts Care (In Minutes): 35
--- NOTE | 2025-03-29 10:16 | RAD REPORT ---
EXAMINATION:Lower Extremity Artery Uni Ltd CLINICAL INDICATION: Male, 65 years old. right leg circulation for 2nd toe amputation RIGHT TECHNIQUE: Arterial duplex ultrasound was performed of the right lower extremity with real-time, colo r-flow, and spectral wave Doppler evaluation. Ankle brachial indices were not performed. COMPARISON: No prior exam. FINDINGS: Minimal plaque throughout the evaluated arterial system. Triphasic waveforms are seen throughout the evaluated right lower extremity arterial system, to the l evel of the dorsalis pedis artery. No other suspicious findings. IMPRESSION: No evidence of significant peripheral vascular disease.
--- NOTE | 2025-03-29 13:06 | CON ---
Date of Consultation: 03/29/2025 Brief History Of Present Illness: The patient is a 65-year-old male with history of hypertension, hy perlipidemia, diabetes, who presented to the emergency department with complaints of pain, tenderness , and swelling of the third toe of the right foot. He states the area became blistered initially as he wears work boots and approximately a week ago, it continued to get progressively worse. The area appears to have gotten infected with cellulitis. He has no additional complaints with respect to pineda n or other findings. Allergies: NO KNOWN DRUG ALLERGIES. Past Medical History: Asthma, hypertension, diabetes, hyperlipidemia. Past Surgical History: Includes right knee surgery. Home Medications: Include Ventolin, Symbicort, Amaryl, Crestor, Janumet, Prinivil. Social History: He lives at home with his family. He denies alcohol or recreational drug use. He d enies smoking. Review of Systems: Ten-point review of systems other than HPI denies. Physical Examination: General: At the time of my examination, he is awake, alert, and oriented. Psychiatric: Appropriate, conversive. HEENT: He is normocephalic. His sclerae are anicteric. Mucous membranes are moist. Oropharynx is clear. Neck: Supple without JVD. Chest: Normal expansion and excursion. Cardiovascular: Regular rate and rhythm. Pulmonary: Clear to auscultation bilaterally. Abdomen: Soft. Extremities: Focused examination of extremity, he has cellulitis and wound of the third toe of the r ight foot at the distal aspect of the toe extending to near the junction of the interphalangeal joint between the distal and the middle phalanx. He also has some discoloration to the medial aspect of h is great toe on both feet and small scaling excoriation to both of these feet consistent with abrasio ns and superficial skin injuries without any evidence of depth to the remainder of the feet. The toe wound appears to be a diabetic wound in appearance. Laboratory Data: Revealed the white blood count of 7.2, hemoglobin 13.1, hematocrit 37.4, platelet c ount is 289. His sodium 142, potassium 3.1, chloride 110, carbon dioxide is 28, BUN 17, creatinine 0 .5, glucose was 76, it was over 294 on admission. He had imaging performed, which included an ultras ound of the arterial system, which showed no evidence of significant peripheral vascular disease with triphasic flow all the way to the dorsalis pedis artery. X-ray of the foot showed no osseous destru ctive changes. There is soft tissue swelling about the first, third, and fourth digits. Soft tissue irregularity along the medial aspect of the big toe. There are degenerative changes at the metatars ophalangeal articulation with the hallux valgus deformity. Assessment And Plan: This is a 65-year-old male who comes in with a wound of the third toe of the [facility] foot. 1. Antibiotic coverage. 2. Continue medical management. 3. I have explained the risks, benefits, and alternatives of debridement, possible amputation of the third toe of the right foot, including but not limited to, bleeding, infection, damage to surrounding tissue, need for further operative procedures. Patient displayed understanding of the above-stated plan and agreed to proceed as indicated. JASPER/KOLTON Voice ID: [id number] Report ID: [id number]
[2025-03-30 05:43] LABS: Absolute Basophils 0.1 K/uL (0-0.5); Absolute Eosinophils 0.3 K/uL (0-0.5); Absolute Lymphocytes (CBC) 2.1 K/uL (0.7-4.9); Absolute Monocytes 0.7 K/uL (0.1-1.3); Absolute Neutrophil 3.6 K/uL (1.8-8.0); Eosinophils % 3.9 % (0-4.4); Hematocrit 38.3 % (39.6-49.0); Hemoglobin 13.3 g/dL (13.6-17.9); Lymphocytes % 30.6 % (15.3-44.8); MCH 29.9 pg (27.0-35.0); MCHC 34.7 g/dL (32.0-36.0); MCV 85.9 fL (80-100); MPV 8.2 fL (7.6-11.3); Monocytes % 10.6 % (3.3-12.3); Neutrophils % 53.9 % (41.7-73.7); Platelets 314 thou/uL (152-406); RBC Red Blood Cell Count 4.46 M/uL (4.33-5.43); Red Cell Distribution Width 12.6 % (12.1-15.2)
[2025-03-30] MEDS: PNEUMOCOCCAL VACCINE 0.5 ML IMVAC ONE (08:00)
--- NOTE | 2025-03-30 08:56 | P.PN ---
Date of Service: 03/30/25 Subjective: No acute events overnight No new complaints General surgery to take patient to the OR for further management of foot wound today ROS: 10 point ROS as noted above, otherwise negative Physical exam GEN: Alert, oriented, NAD HEENT: Normal conjunctiva, sclera anicteric CV: Regular rate and rhythm, no edema Pulm: Nonlabored respirations on room air ABD: Soft, nontender, nondistended MSK: No joint tenderness Integumentary: Blister to right third toe, additional wounds/ulcerations present on the other toes Neuro: Normal speech, normal affect Vitals reviewed Assessment: Diabetic foot wound right third toe Diabetes mellitus type 4oyo-vierppg-nyyrokeed Hypertension Hyperlipidemia Plan: Diabetic foot wound right third toe Diabetes mellitus type 9yxj-bghucnd-hqnducuop Broad-spectrum antibiotics General Surgery to see for possible incision and drainage N.p.o. awaiting surgical evaluation Sliding scale insulin, A1c pending Has not been on medications for around a year now, working on getting a PCP after getting a job now Will need prescriptions for diabetic medications at discharge as well as close follow-up outpatient Hypertension Hyperlipidemia Has been noncompliant with medications previously prescribed as he did not have insurance and has not seen Monitor blood pressures at hospitalization, start medications as appropriate DVT PPX: SCDs full Code status: Full code Discharge Plan: Home Plan to discharge in: 72 Hours Time Spent Managing Pts Care (In Minutes): 35
[2025-03-30] MEDS: NA CHLORIDE 0.9% 1,000 ML ONE (12:00)
--- NOTE | 2025-03-30 12:09 | EKG ---
Test Date: 2025-03-28 Test Time: 15:08:10 Film Editor: BP MEASUREMENT RESULTS: Intervals: Rate: 78 HI: 186 QRSD: 104 QT: 398 QTc: 453 [place]: P: 66 HI: 186 QRS: 82 T: 45 INTERPRETIVE STATEMENTS: Normal sinus rhythm Cannot rule out Inferior infarct, age undetermined Abnormal ECG Compared to ECG 04/10/2014 10:14:54 No significant changes Electronically Signed On 03-30-25 12:06:58 CDT by Jeremiah Knox
[2025-03-30] MEDS ORDERED: LIDOCAINE 2% MPF 5 ML VIAL ONE (13:56)
[2025-03-30] MEDS ORDERED: ONDANSETRON 4 MG/2 ML VIAL ONE (13:56)
[2025-03-30] MEDS ORDERED: propofoL 200 MG/20 ML VIAL IV ONE (13:56)
[2025-03-30] MEDS ORDERED: FENTANYL CITR 100 MCG/2 ML ONE (13:57)
[2025-03-30] MEDS ORDERED: MIDAZOLAM HCL 2 MG/2 ML INJ ONE (13:57)
[2025-03-30] MEDS: LIDOCAINE HCL/EPINEPHRINE 20 ML MDV ONE (15:09)
--- NOTE | 2025-03-30 15:18 | P.OP ---
Preoperative diagnosis: infection of 3rd toe of RIGHT Foot Postoperative diagnosis: infection of 3rd toe of RIGHT Foot Primary procedure: Debridement of 3rd toe of RIGHT Foot Anesthesia: GETA + Local Estimated blood loss: <1cc Specimen: debridement tissue, cultures Findings: superficial stage I wound of 3rd toe of RIGHT Foot Complications: None Transferred to: Recovery Room Condition: Good
[2025-03-30 15:33] VITALS: O2SAT 100
--- NOTE | 2025-03-30 20:27 | OP ---
Date of Procedure: 03/30/2025 Surgeon: Alcides Patel MD, Preoperative Diagnosis: Infection of third toe of the right foot. Postoperative Diagnosis: Infection of third toe of the right foot. Procedure Performed: Debridement of third toe of the right foot. Anesthesia: General endotracheal plus local with 1% lidocaine with epinephrine Estimated Blood Loss: 1 cc. Specimens: Debridement of tissue and cultures sent for both aerobic and anaerobic speciation. Findings: Superficial stage I wound of the third toe of the right foot. Complications: None. Disposition: The patient was transferred to recovery room in good condition. Procedure In Detail: After informed consent was obtained, patient was brought to the operating room, prepped and draped in the usual sterile fashion after adequate anesthesia was achieved. I used a 15 blade to circumferentially dissect out a stage I wound of the third toe of the right foot down to villalpando bcutaneous tissue. Culture sent for both aerobic and anaerobic speciation, sent off for pathologic e xamination. The area was copiously irrigated and a sterile dressing was applied. The patient tolera alcides the procedure well without incident or complication, transferred to PACU in good condition. All counts were correct at the end of the case. TK/MODL Voice ID: [id number] Report ID: [id number]
[2025-03-31 06:48] LABS: Absolute Basophils 0.1 K/uL (0-0.5); Absolute Eosinophils 0.2 K/uL (0-0.5); Absolute Lymphocytes (CBC) 2.8 K/uL (0.7-4.9); Absolute Monocytes 0.8 K/uL (0.1-1.3); Absolute Neutrophil 3.3 K/uL (1.8-8.0); Basophils % 0.9 % (0-1.3); Eosinophils % 2.7 % (0-4.4); Hemoglobin 13.8 g/dL (13.6-17.9); MCHC 34.6 g/dL (32.0-36.0); MCV 86.6 fL (80-100); MPV 8.4 fL (7.6-11.3); Monocytes % 10.9 % (3.3-12.3); Neutrophils % 46.5 % (41.7-73.7); Nucleated Red Blood Cells % 0.1 % (0-0); Platelets 307 thou/uL (152-406); RBC Red Blood Cell Count 4.62 M/uL (4.33-5.43); Red Cell Distribution Width 12.2 % (12.1-15.2)
[2025-03-31 07:08] LABS: Anion Gap 8.4 mEq/L (5.0-15.0); Potassium 4.4 mEq/L (3.5-5.1)
--- NOTE | 2025-03-31 12:03 | P.DS ---
Admission Date: 03/28/25 Discharge Date: 03/31/25 Disposition: ROUTINE DISCHARGE Discharge Condition: GOOD Reason for Admission: Diabetic foot wound Brief History of Present Illness: Diagnosis Diabetic foot wound right third toe Diabetes mellitus type 9tyz-mqloisd-cqojaijqo Hypertension Hyperlipidemia HPI 03/28/25 65-year-old male with history of hypertension, hyperlipidemia, sxf-jnfetay-rqqpjybkw diabetes presents to the emergency department chief complaint of right third toe wound. He reports that he got a blister from wearing his boots at work about a week ago and since then it has become painful, erythematous and the blister appears infected. He was evaluated in the emergency department his labs are significant for a white blood cell count of 10.4 glucose of 140 lactic acid of 1.4 x-ray of the right foot is pending but does not appear to show any osteomyelitis per my review. He was started on broad-spectrum antibiotics in the ED, case was reviewed with general surgery by ED staff and he will be admitted for further evaluation and management of diabetic foot wound. N.p.o. for midnight in anticipation of possible incision and drainage in the morning. Hospital Course: Diabetic foot wound right third toe Diabetes mellitus type 0wwf-crtnpnq-ewbjerdgw Patient was administered broad-spectrum antibiotics, will discharge with Leticia parra based on a microbiology sensitivity Patient was seen by Dr. Patel performed debridement of right third toe on 03/30/2025 and will continue with wound care and antibiotic response. Patients A1c 12.7, elevated serum glucose, will need continued outpatient management and start metformin at discharge, he reports not being on medications for around a year, working on getting a PCP after getting a job now. Hypertension Hyperlipidemia Patient is noncompliant with medications previously prescribed as he does not have insurance and has not seen On 03/31/25, Fox was seen on morning rounds hemodynamically stable. Dr. Patel has evaluated and cleared for discharge. Amoxicillin, metformin, blood glucose kit prescribed. Follow up with Dr. Patel for continued wound care and monitoring. Daily dressing changes: Remove all dressings cleanse toe on right foot then redress with damp gauze with Vashe then dry wrap and elevate. Physical exam GEN: Alert and oriented x3, NAD HEENT: Normal conjunctiva, sclera anicteric CV: Regular rate and rhythm, no edema Pulm: Symmetrical chest wall movement, on room air ABD: Soft and nontender on palpation MSK: No joint tenderness Integumentary: right third toe dressing CDI, additional wounds/ulcerations present on the other toes Neuro: Normal speech, normal affect Vital Signs/Physical Exam: Temp Pulse Resp BP Pulse Ox 97.5 F 68 20 159/85 H 95 03/31/25 08:00 03/31/25 08:00 03/31/25 08:00 03/31/25 08:00 03/31/25 08:00 Laboratory Data at Discharge: WBC 7.10 thou/uL (4.3-10.9) 03/31/25 06:34 Hgb 13.8 g/dL (13.6-17.9) 03/31/25 06:34 Hct 40.0 % (39.6-49.0) 03/31/25 06:34 Plt Count 307 thou/uL (152-406) 03/31/25 06:34 PT 10.8 SECONDS (10-13.0) 03/28/25 14:46 INR 0.94 03/28/25 14:46 APTT 30.2 SECONDS (27.2-37.4) 03/28/25 14:46 Sodium 136 mEq/L (136-145) 03/31/25 06:34 Potassium 4.4 mEq/L (3.5-5.1) 03/31/25 06:34 BUN 11 mg/dL (7-18) 03/31/25 06:34 Creatinine 0.75 mg/dL (0.70-1.30) 03/31/25 06:34 Glucose 268 mg/dL (74-106) H 03/31/25 06:34 Total Bilirubin 0.4 mg/dL (0.2-1.0) 03/28/25 14:46 AST < 10 U/L (15-37) L 03/28/25 14:46 ALT 22 U/L (16-61) 03/28/25 14:46 Alkaline Phosphatase 119 U/L (45-117) H 03/28/25 14:46 Home Medications: Amox/Clavulanate [Augmentin 875-125 Tab] 875 mg PO BID 5 Days #10 tab 03/31/25 Blood Sugar Diagnostic [Blood Glucose Test Strip] 1 each MC BID 30 Days #100 strip 03/31/25 Blood-Glucose Meter [Blood Glucose Meter] 1 each MC BID 30 Days #1 ea 03/31/25 Lancets [Glucocom Lancets] 1 each MC BID 30 Days #100 ea 03/31/25 Metformin HCl 500 mg PO DAILY 10 Days #10 tab 03/31/25 New Medications: Amox/Clavulanate [Augmentin 875-125 Tab] 875 mg PO BID 5 Days #10 tab Blood-Glucose Meter [Blood Glucose Meter] 1 each MC BID 30 Days #1 ea Blood Sugar Diagnostic [Blood Glucose Test Strip] 1 each MC BID 30 Days #100 strip Lancets [Glucocom Lancets] 1 each MC BID 30 Days #100 ea Metformin HCl 500 mg PO DAILY 10 Days #10 tab Physician Discharge Instructions: 1. Please call and schedule a follow-up appointment with your PCP in 3-5 days - Please follow-up with your PCP for medication refills/adjustments -Started metformin for diabetes management, A1C 12.7 -Check blood sugar in the morning and at night. Please keep a record for your doctor 2. Please call and schedule a follow-up appointment with Dr. Patel in one week 3. Continue diabetes diet, starting metformin, A1C 12.7 4. activity restrictions fall precaution 5. Return to the ED if symptoms worsen New medications metformin 500 mg daily x 10 days, follow up with PCP for continued diabetes management Augmentin 875 mg twice daily x 5 days, follow up with Dr. Patel in one week for continued management. Daily dressing changes: Remove all dressings cleanse toe on right foot then redress with damp gauze with Vashe then dry wrap and elevate. Diet: Regular Activity: No lifting more than 10 lbs Followup: Hussain Patel MD [ACTIVE - CAN ADMIT] - 1-2 Weeks NONE,NONE [Primary Care Provider] -
[2025-03-31 12:40] VITALS: BP 158/88; TEMP 98
== END 2025-03-31 12:39 | disposition home or self-care (01) | DRG 572 ==
LOC: ER 13:55 → ERHOLD 16:13 → 4TH 17:03 → 2ND 17:22
PROVIDERS: ADMIT Internal Medicine; ATTEND Hospitalist
PROC: 0JBQ0ZZ Excision of Right Foot Subcutaneous Tissue and Fascia, Open Approach (ICD-10-PCS; principal; 2025-03-30 14:00)
DX: L03.115 Cellulitis of right lower limb (principal); E11.9 Type 2 diabetes mellitus without complications; I10 Essential (primary) hypertension; E78.00 Pure hypercholesterolemia, unspecified; Z79.84 Long term (current) use of oral hypoglycemic drugs; Z79.899 Other long term (current) drug therapy
CPT/HCPCS: 36415; 80048; 80053; 80202; 82947; 83036; 83605; 85025; 85610; 85730; 87040; 87070; 87075; 87077; 87186; 87205; 88304; 93005; 93926; 96365; 99285; J0692; J1815; J2003; J2250; J2405; J2704; J3010; J3370; J3480; J7030; J7040; J7050

== ENCOUNTER 2025-07-12 15:23 | Inpatient (IN) | payer OTHER, SELFPAY ==
[2025-07-12] MEDS ORDERED: HYDROCODONE/APAP 7.5/325 MG TAB ONE (16:30)
[2025-07-12] MEDS ORDERED: VANCOMYCIN 1 GM/VIAL ONE (16:31)
[2025-07-12] MEDS ORDERED: NA CHLORIDE 0.9% 250 ML ONE (16:31)
[2025-07-12 16:36] LABS: Absolute Lymphocytes (CBC) 1.9 K/uL (0.7-4.9); Hematocrit 39.2 % (39.6-49.0); Hemoglobin 13.2 g/dL (13.6-17.9); MCH 28.7 pg (27.0-35.0); MCHC 33.7 g/dL (32.0-36.0); MCV 85.3 fL (80-100); MPV 8.1 fL (7.6-11.3); Nucleated RBC Absolute Count 0.0 (0-0); Nucleated Red Blood Cells % 0.0 % (0-0); RBC Red Blood Cell Count 4.60 M/uL (4.33-5.43); White Blood Count 8.10 thou/uL (4.3-10.9)
[2025-07-12 16:48] LABS: PT Prothrombin Time 13.1 SECONDS (10-13.0); PTT, Activated Partial Thromb 31.7 SECONDS (27.2-37.4); Protime INR 1.16
[2025-07-12 17:18] LABS: ALT/SGPT 27.0 U/L (16-61); AST/SGOT 11.0 U/L (15-37); Albumin 2.8 g/dL (3.4-5.0); Albumin/Globulin Ratio 0.7 (1.1-1.8); Alkaline Phosphatase 116.0 U/L (45-117); Anion Gap 8.1 mEq/L (5.0-15.0); BUN Blood Urea Nitrogen 12.0 mg/dL (7-18); Globulin 4.3 g/dL (2.3-3.5); Glucose Level 214.0 mg/dL (74-106); Potassium 4.1 mEq/L (3.5-5.1); Troponin High Sensitivity 4.6 pg/mL (<58.9)
--- NOTE | 2025-07-12 17:19 | RAD REPORT ---
EXAM: Foot Right 3 View HISTORY: osteo r/o 3rd toe COMPARISON: 03/28/2025 FINDINGS: Bones: Postoperative changes versus fracture at the third phalangeal tuft. No definite osteomyelitis. Alignment:No significant malalignment. Degenerative changes:Moderate degenerative changes are present at the first MTP joint. Plantar aspect calcaneal spurs. Other: Soft tissue defect at the tip of the third toe. IMPRESSION: Fracture versus postoperative changes at the third distal phalangeal tuft. A fragment involving the t uft is slightly displaced medially. Again, this could be postoperative or posttraumatic. Osteomyelitis difficult to entirely exclude given the underlying irregularity.
--- NOTE | 2025-07-12 17:25 | ER ---
Nurse's Notes [facility] Name: Fox Rosas Age: 65 yrs Sex: Male : 1960 Arrival Date: 07/12/2025 Time: 15:23 Bed 6 Private MD: Diagnosis: Nonhealing diabetic foot wound of third distal phalanx, right foot;Cellulitis of right foot;Type 2 diabetes mellitus with hyperglycemia Presentation: 07/12 15:59 Chief complaint: Patient states: redness and swelling to R 3rd toe that has been ss ongoing since the beginning of March. Pt reports he had surgery on 03/28/[address] Patel on this same toe. Pt is concerned because it does not seem to be getting better. Coronavirus screen: Client denies travel out of the [place] in the last 14 days. Ebola Screen: Patient denies exposure to infectious person. Patient denies travel to an Ebola-affected area in the 21 days before illness onset. 15:59 Method Of Arrival: Ambulatory ss 15:59 Risk Assessment: Do you want to hurt yourself or someone else? Patient reports no ss desire to harm self or others. Onset of symptoms was June 26, 2025. 15:59 Acuity: MATTI 3 ss 16:02 Initial Sepsis Screen: Does the patient meet any 2 criteria? No. Patient's initial ss sepsis screen is negative. Does the patient have a suspected source of infection? No. Patient's initial sepsis screen is negative. Historical: - Allergies: 16:02 Florentin; ss - PMHx: 16:02 Asthma; diabetes mellitus; Hypercholesterolemia; Hypertensive disorder; ss - Immunization history:: Adult Immunizations up to date. - Infectious Disease History:: Denies. - Social history:: Smoking status: Patient denies any tobacco usage or history of. Screenin:43 [facility] ED Fall Risk Assessment (Adult) History of falling in the last 3 months, jl7 including since admission No falls in past 3 months (0 pts) Confusion or Disorientation No (0 pts) Intoxicated or Sedated No (0 pts) Impaired Gait No (0 pts) Mobility Assist Device Used No (0 pt) Altered Elimination No (0 pt) Score/Fall Risk Level 0 - 2 = Low Risk Oriented to surroundings, Maintained a safe environment. Abuse screen: Denies threats or abuse. Denies injuries from another. Nutritional screening: No deficits noted. Tuberculosis screening: No symptoms or risk factors identified. Assessment: 16:42 General: Appears in no apparent distress. uncomfortable, Behavior is calm, cooperative, jl7 appropriate for age. Pain: Complains of pain in right third toe Pain currently is 8 out of 10 on a pain scale. Neuro: Curry Agitation-Sedation Scale (RASS): 0 - Alert and Calm Level of Consciousness is awake, alert, obeys commands, Oriented to person, place, time, situation. Cardiovascular: Patient's skin is warm and dry. Respiratory: Airway is patent Respiratory effort is even, unlabored, Respiratory pattern is regular, symmetrical. Derm: Skin is pink, warm \T\ dry. Musculoskeletal: Swelling present in right leg. 17:35 Reassessment: Patient appears in no apparent distress at this time. Patient and/or jl7 family updated on plan of care and expected duration. Pain level reassessed. Patient is alert, oriented x 3, equal unlabored respirations, skin warm/dry/pink. reports decreased pain at this time. Vital Signs: 15:59 BP 150 / 86; Pulse 86; Resp 16; Temp 98(O); Pulse Ox 98% ; Pain 5/10; ss 16:42 BP 150 / 86; Pulse 75; Resp 15; Pulse Ox 100% ; Pain 8/10; jl7 17:35 BP 142 / 83; Pulse 70; Resp 15; Pulse Ox 100% ; jl7 18:41 BP 152 / 91; Pulse 67; Resp 15; Pulse Ox 96% ; jl7 19:17 BP 128 / 86; Pulse 67; Resp 18; Pulse Ox 97% ; hm5 21:07 BP 146 / 89; Pulse 66; Resp 18; Pulse Ox 97% ; cp4 15:59 Pain Scale: Adult ss 16:42 Pain Scale: Adult jl7 ED Course: 15:28 Patient arrived in ED. al6 15:33 Susannah Canseco PA-C is PHCP. sb4 15:33 Kendall Terry MD is Attending Physician. sb4 16:02 Triage completed. ss 16:02 Arm band placed on right wrist. ss 16:04 Maksim Gillespie RN is Primary Nurse. jl7 16:05 Maksim Gillespie RN is Primary Nurse. jl7 16:05 Client placed on continuous cardiac and pulse oximetry monitoring. NIBP monitoring ap3 applied. bus driver/monitor on. Pulse ox on. NIBP on. 16:20 Second set of blood cultures drawn by me. jl7 16:25 Initial lab(s) drawn, by me, sent to lab. EKG done, by ED staff, reviewed by Susannah Canseco PA-C. Inserted saline lock: 20 gauge in right forearm, using aseptic technique. Blood collected. Flushed with 10 mL NS. 16:25 First set of blood cultures drawn by me. jl7 16:47 Patient has correct armband on for positive identification. Provided Education on: use jl7 of call bear. 17:05 Foot Right 3 View XRAY In Process Unspecified. EDMS 17:23 Josh Terry MD is Hospitalizing Provider. sb4 17:30 Wound care: located on plantar aspect of right third toe and right third toe was jl7 cleaned with with wound wash, dressed with damp to dry. 18:41 No provider procedures requiring assistance completed. Patient admitted, IV remains in jl7 place. intact, No redness/swelling at site. Administered Medications: 16:43 Drug: Hydrocodone-Acetaminophen PO (7.5 mg-325 mg) 1 tabs PO once Route: PO; jl7 17:35 Follow up: Response: No adverse reaction; Pain is decreased jl7 16:44 Drug: vancoMYCIN IVPB 1 grams IVPB once over 2 hrs Route: IVPB; Infused Over: 2 hrs; jl7 Site: right forearm; 18:45 Follow up: Response: No adverse reaction; IV Status: Completed infusion; IV Intake: jl7 250ml Medication: 16:43 VIS not applicable for this client. jl7 Intake: 18:45 IV: 250ml; Total: 250ml. jl7 Outcome: 17:23 Decision to Hospitalize by Provider. sb4 21:07 Admitted to Med/surg accompanied by tech, via wheelchair, room 206, with chart, cp4 21:07 Condition: stable 21:07 Instructed on the need for admit, 21:08 Patient left the ED. cp4 Signatures: Dispatcher [employer] EDMS Sonia Henning RN RN ss Maksim Gillespie RN RN jl7 Yamilet Stringer RN RN ap3 Susannah Canseco PA-C PA-C sb4 Pili Griffin cp4 Laine Garza6 Mila Suggs, RN RN hm5 Corrections: (The following items were deleted from the chart) 16:02 15:59 BP 150 / 86; Pulse 86bpm; Resp 16bpm; Pulse Ox 98%; Temp 98F Temporal; ss ss 16:03 16:02 Allergies: Mangno; ss ss 16:14 15:59 Chief complaint: Patient states: redness and swelling to R 3rd toe that has been ss ongoing since the beginning of this month. Pt reports he had surgery on 06/28/[address] Patel on this same toe. ss 18:43 16:42 Pain: Complains of pain in right second toe Pain currently is 8 out of 10 on a jl7 pain scale. jl7
--- NOTE | 2025-07-12 17:25 | EDPHYS ---
Physician Documentation [facility] Name: Fox Rosas Age: 65 yrs Sex: Male : 1960 Arrival Date: 07/12/2025 Time: 15:23 Bed 6 Private MD: ED Physician Kendall Terry HPI: 07/12 16:43 This 65 yrs old Male presents to ER via Ambulatory with complaints of Foot sb4 Pain. 16:43 Patient complains of a nonhealing wound on his right third toe. States that he was sb4 admitted for an infection of it 3 months ago, Dr. Patel debrided it, and he took a course of antibiotics. He states that it has slowly gotten more swollen, painful, and has more drainage. He states the pain radiates up his leg. Denies any fever or chills. Has not followed up with his general surgeon. Is a diabetic, is not sure if his blood sugars controlled or not. Historical: - Allergies: 16:02 Florentin; ss - PMHx: 16:02 Asthma; diabetes mellitus; Hypercholesterolemia; Hypertensive disorder; ss - Immunization history:: Adult Immunizations up to date. - Infectious Disease History:: Denies. - Social history:: Smoking status: Patient denies any tobacco usage or history of. ROS: 16:43 Constitutional: Negative for fever, chills, and weight loss, sb4 16:43 MS/extremity: Positive for 16:43 Skin: Positive for cellulitis, of the right foot, per HPI, 16:43 All other systems are negative, Exam: 16:43 Constitutional: This is a well developed, well nourished patient who is awake, alert, sb4 and in no acute distress. Head/Face: Normocephalic, atraumatic. Eyes: Extra-ocular motions intact. Periorbital areas with no swelling, redness, or edema. ENT: Mucous membranes moist. Respiratory: No increased work of breathing, no retractions or nasal flaring. 16:43 Skin: Diabetic foot wound distal right third toe with purulent drainage, cellulitis streaking up the right foot. Vital Signs: 15:59 BP 150 / 86; Pulse 86; Resp 16; Temp 98(O); Pulse Ox 98% ; Pain 5/10; ss 16:42 BP 150 / 86; Pulse 75; Resp 15; Pulse Ox 100% ; Pain 8/10; jl7 17:35 BP 142 / 83; Pulse 70; Resp 15; Pulse Ox 100% ; jl7 18:41 BP 152 / 91; Pulse 67; Resp 15; Pulse Ox 96% ; jl7 19:17 BP 128 / 86; Pulse 67; Resp 18; Pulse Ox 97% ; hm5 21:07 BP 146 / 89; Pulse 66; Resp 18; Pulse Ox 97% ; cp4 15:59 Pain Scale: Adult ss 16:42 Pain Scale: Adult jl7 MDM: 15:41 Medical Screening Exam initiated sb4 16:43 Differential diagnosis: Cellulitis, diabetic ulcer, osteomyelitis. Data reviewed: vital sb4 signs, nurses notes, lab test result(s), EKG, radiologic studies, and as a result, I will admit patient. Consideration of Admission/Observation Patient was admitted/placed on observation. Management of patient was discussed with the following: Plywood Layup Line Core Layer: General surgery, Dr. Patel agrees to consult-requests patient be n.p.o. with antibiotics. Care significantly affected by the following chronic conditions: Diabetes, Hypertension. Counseling: I had a detailed discussion with the patient and/or guardian regarding the historical points, exam findings, and any diagnostic results supporting the discharge/admit diagnosis, the presence of at least one elevated blood pressure reading (>120/80) during this emergency department visit, lab results, radiology results, the need for further work-up and treatment in the hospital. 17:09 Independent interpretation of the following test(s) in the Emergency Department X-Ray: sb4 My interpretation is My interpretation of the right foot x-ray images is tera destruction/deterioration of the distal third phalanx suggestive of ongoing osteomyelitis. 07/12 16:02 Order name: Blood Culture Adult (2) sb4 07/12 16:02 Order name: CBC with Diff; Complete Time: 16:39 sb4 07/12 16:02 Order name: CMP; Complete Time: 17:19 sb4 07/12 16:02 Order name: Lactate w/ 2H reflex if indic.; Complete Time: 17:01 sb4 07/12 16:02 Order name: Protime (+inr); Complete Time: 16:48 sb4 07/12 16:02 Order name: Ptt, Activated; Complete Time: 16:48 sb4 07/12 16:02 Order name: Troponin HS; Complete Time: 17:19 sb4 07/12 20:23 Order name: Basic Metabolic Panel EDMS 07/12 20:23 Order name: Basic Metabolic Panel EDMS 07/12 20:23 Order name: Basic Metabolic Panel EDMS 07/12 20:23 Order name: Basic Metabolic Panel EDMS 07/12 20:23 Order name: CBC with Automated Diff EDMS 07/12 20:23 Order name: CBC with Automated Diff EDMS 07/12 20:23 Order name: CBC with Automated Diff EDMS 07/12 20:23 Order name: CBC with Automated Diff EDMS 07/12 16:02 Order name: Foot Right 3 View XRAY; Complete Time: 17:19 sb4 07/12 16:02 Order name: EKG; Complete Time: 16:02 sb4 07/12 16:02 Order name: Accucheck; Complete Time: 16:38 sb4 07/12 16:02 Order name: Cardiac monitoring; Complete Time: 16:06 sb4 07/12 16:02 Order name: EKG - Nurse/Tech; Complete Time: 16:10 sb4 07/12 16:02 Order name: IV Saline Lock - Large Bore; Complete Time: 16:38 sb4 07/12 16:02 Order name: Labs collected and sent; Complete Time: 16:38 sb4 07/12 16:02 Order name: O2 Per Protocol; Complete Time: 16:06 sb4 07/12 16:02 Order name: O2 Sat Monitoring; Complete Time: 16:06 sb4 07/12 16:02 Order name: Vital Signs; Complete Time: 16:38 sb4 07/12 16:04 Order name: Wound Care: vashe, damp to dry; Complete Time: 17:35 sb4 EC:10 Rate is 75 beats/min. Rhythm is regular, Normal Sinus Rhythm. [place] interval is normal at sb4 166 msec. QRS interval is normal at 90 msec. QT interval is normal at 398 msec. No Q waves. T waves are Normal. No ST changes noted. Clinical impression: No evidence of ischemia. Interpreted by me. Reviewed by me. Administered Medications: 16:43 Drug: Hydrocodone-Acetaminophen PO (7.5 mg-325 mg) 1 tabs PO once Route: PO; jl7 17:35 Follow up: Response: No adverse reaction; Pain is decreased jl7 16:44 Drug: vancoMYCIN IVPB 1 grams IVPB once over 2 hrs Route: IVPB; Infused Over: 2 hrs; jl7 Site: right forearm; 18:45 Follow up: Response: No adverse reaction; IV Status: Completed infusion; IV Intake: jl7 250ml Disposition Summary: 07/12/25 17:23 Hospitalization Ordered Notes: Hospitalization Status: Inpatient Admission sb4 Provider: Josh Terry sb4 Location: Telemetry/MedSur (Inpatient) sb4 Condition: Fair sb4 Problem: an ongoing problem sb4 Symptoms: are unchanged sb4 Bed/Room Type: Standard sb4 Room Assignment: 206(07/12/25 20:20) kmf Diagnosis - Nonhealing diabetic foot wound of third distal phalanx, right foot sb4 - Cellulitis of right foot sb4 - Type 2 diabetes mellitus with hyperglycemia sb4 Forms: - Medication Reconciliation Form sb4 - SBAR form sb4 - Leadership Thank You Letter sb4 Addendum: 07/18/2025 07:18 Co-signature as Attending Physician, Kendall Terry MD I reviewed the patient's care r n provided by the Advanced Practice Provider and agree with the diagnosis and treatment plan. Signatures: Dispatcher [employer] Kendall Ewing MD MD rn Blanchard, Shelby, RN RN Maksim Trejo RN RN jl7 Brown, Sophia, DESMOND PAJose Rafael sb4 Fidelia Klein kmf Corrections: (The following items were deleted from the chart) 07/12 16:03 16:03 Foot Right 3 View+RAD.RAD.BRZ ordered. [facility] 16:03 16:02 Allergies: Mangno; ss ss 20:20 17:23 sb4 kmf
--- NOTE | 2025-07-12 20:23 | P.HP ---
Certification for Inpatient Patient admitted to: Inpatient With expected LOS: >2 Midnights Patient will require the following post-hospital care: None Practitioner: I am a practitioner with admitting privileges, knowledge of patient current condition, hospital course, and medical plan of care. Services: Services provided to patient in accordance with Admission requirements found in Title 42 Section 412.3 of the Code of Federal Regulations Patient History Date of Service: 07/12/25 Reason for admission: Diabetic wound right foot third digit/cellulitis History of Present Illness: Patient is a pleasant 65-year-old male with past medical history of asthma, type 2 diabetes mellitus, hypercholesteremia, essential hypertension, previous debridement to his right foot third digit diabetic wound by Dr. Patel, who presents to the ER complaining of severe pain to his right foot and his diabetic wound third digit with associated chills, but no fever. Patient states on Sunday of this week, he started noticing that his right foot was getting swelling, and very painful, erythema, and his diabetic wound right foot third digit with increased drainage nonpurulent , increased pain, and not healing well. States his pain progressively worsening on his right foot, and his right third digit diabetic wound which then prompted him to report to the ER. States he started having some chills today. Dr. Patel had previously debrided patient diabetic wound on the same right foot third digit prior. During admission assessment, patient was fully awake, alert and oriented x 3, patient states he does not have any PCP at this time, and when inquired from the patient how he has been managing his diabetes, patient could not give me a clear answer. He states he is currently looking for a new PCP at this time. Patient wound was already cleansed and dressed by wound care team prior to admission assessment. Patient has cellulitis to his right foot. No sign of DVT noted. Allergies dulce Allergy (Verified 03/30/25 11:56) Hives NKDA Allergy (Uncoded 04/10/14 16:18) Unknown Home Medications: Blood Sugar Diagnostic [Blood Glucose Test Strip] 1 each MC BID 30 Days #100 strip 03/31/25 Blood-Glucose Meter [Blood Glucose Meter] 1 each MC BID 30 Days #1 ea 03/31/25 Lancets [Glucocom Lancets] 1 each MC BID 30 Days #100 ea 03/31/25 Metformin HCl 500 mg PO DAILY 10 Days #10 tab 03/31/25 - Past Medical/Surgical History Diabetic: Yes -: ASTHMA -: HTN -: DM -: Hyperlipidemia -: (R) knee -: Right foot third digit debridement Psychosocial/ Personal History: Lives at home with family - Family History Mother -: Hypertension, Lung disease, Diabetes - Social History Smoking Status: Never smoker Alcohol use: No CD- Drugs: No Caffeine use: Yes Place of Residence: Home Review of Systems 10-point ROS is otherwise unremarkable Integumentary: Other (Right foot third digit diabetic wound severe pain.) Physical Examination - Physical Exam General: Alert, In no apparent distress, Oriented x3 HEENT: Atraumatic, Normocephalic, PERRLA, Mucous membr. moist/pink, Sclerae nonicteric Neck: Supple, 2+ carotid pulse no bruit, No LAD, Without JVD or thyroid abnormality Respiratory: Clear to auscultation bilaterally, Normal air movement Cardiovascular: No edema, Normal pulses, Regular rate/rhythm, Normal S1 S2, No gallops, No rubs, No murmurs Capillary refill: <2 Seconds Gastrointestinal: Normal bowel sounds, Soft and benign, W/out hepatomegaly, No ascites, No tenderness, No masses, No rebound, No guarding Musculoskeletal: No clubbing, Swelling (Right foot with diabetic wound, cellulitis.) Integumentary: No cyanosis, Tenderness/swelling (Right foot diabetic wound third digit, cellulitis), Erythema, Warmth Neurological: Normal gait, Normal speech, Normal strength at 5/5 x4 extr, Normal tone, Sensation intact, Cranial nerves 3-12 intact, Normal reflexes 2+, Normal affect Lymphatics: No axilla or inguinal lymphadenopathy - Studies Laboratory Data (last 24 hrs) 07/12/25 07/12/25 07/12/25 16:25 16:25 16:25 WBC 8.10 Hgb 13.2 L Hct 39.2 L Plt Count 348 PT 13.1 H INR 1.16 APTT 31.7 Sodium 137 Potassium 4.1 BUN 12 Creatinine 0.60 L Glucose 214 H Total Bilirubin 0.6 AST 11 L ALT 27 Alkaline Phosphatase 116 Male Exam - Male Exam Inguinal exam: No hernias Assessment and Plan - Plan Patient is a pleasant 65-year-old male admitted inpatient with diagnosis of right foot cellulitis, diabetic wound right foot third digit which appears necrotic, will need to be debrided by Dr. patel in AM. (1)Right foot cellulitis/diabetic wound right foot third digit. -N.p.o. after midnight. -Consult Dr. Patel, for surgery debridement in AM. -Vancomycin 1.75 g every 12 hours adjusted by pharmacy. -Ancef 1 g IV every 8 hours. -Morphine 4 mg as needed IV every 4 hours. -Consult wound care team. -Order for wound culture diabetic wound right foot third digit. (2)Chronic type 2 diabetes mellitus. -Order A1c to evaluate patient current diabetic status. Since patient does not currently have a PCP it appears he has not been managing his diabetes appropriately. -Ordered metformin 1000 mg p.o. twice daily. -Order moderate SS/ACHS. (3)Chronic asthma. - Albuterol 2.5 mg nebulizer as needed every 6 hours. (4)Explained the entire treatment plan to the patient, solicit questions answered and voiced understanding. Discharge Plan: Home Plan to discharge in: Greater than 2 days - Advance Directives Does patient have a Living Will: No Does patient have a Durable POA for Healthcare: No - Code Status/Comfort Care Code Status Assessed: Yes Code Status: Full Code Critical Care: No Time Spent Managing Pts Care (In Minutes): 55
[2025-07-12] MEDS: INSULIN REGULAR (HUMAN) 100 UNIT/ML SQ SCH (21:00)
[2025-07-12 21:43] VITALS: BMI 34.4
[2025-07-12] MEDS: MORPHINE 4 MG/ML SYR IV PRN (22:05)
[2025-07-12] MEDS: VANCOMYCIN 750 MG in NA CHLORIDE 0.9% 250 ML IVPB ONE (23:46)
[2025-07-13] MEDS: NA CHLORIDE 0.9% 1,000 ML IV SCH (01:03)
[2025-07-13] MEDS: CEFAZOLIN 1 GM in NA CHLORIDE 0.9% 50 ML IVPB SCH (01:03)
[2025-07-13 04:20] LABS: Absolute Lymphocytes (CBC) 2.3 K/uL (0.7-4.9); Hematocrit 36.4 % (39.6-49.0); Hemoglobin 12.3 g/dL (13.6-17.9); MCH 28.7 pg (27.0-35.0); MCHC 33.8 g/dL (32.0-36.0); MCV 84.9 fL (80-100); MPV 8.0 fL (7.6-11.3); Nucleated RBC Absolute Count 0.0 (0-0); Nucleated Red Blood Cells % 0.0 % (0-0); RBC Red Blood Cell Count 4.29 M/uL (4.33-5.43); White Blood Count 8.40 thou/uL (4.3-10.9)
[2025-07-13 04:35] LABS: Anion Gap 7.0 mEq/L (5.0-15.0); BUN Blood Urea Nitrogen 15.0 mg/dL (7-18); Glucose Level 211.0 mg/dL (74-106); Potassium 4.0 mEq/L (3.5-5.1)
[2025-07-13] MEDS: VANCOMYCIN 1.75 GM in NA CHLORIDE 0.9% 500 ML IVPB SCH ×2 (05:00→08:00)
[2025-07-13] MEDS ORDERED: ALBUTEROL 2.5 MG/3 ML NEB SOL NEB PRN (05:03)
[2025-07-13] MEDS: METFORMIN HCL 500 MG TAB PO SCH (08:00)
[2025-07-13] MEDS ORDERED: VANCOMYCIN 1.5 GM in NA CHLORIDE 0.9% 500 ML IVPB SCH (09:00)
[2025-07-14] MEDS: ACETAMINOPHEN 325 MG TABLET PO PRN (01:13)
[2025-07-14 07:00] LABS: Absolute Lymphocytes (CBC) 2.1 K/uL (0.7-4.9); Hematocrit 37.1 % (39.6-49.0); Hemoglobin 12.7 g/dL (13.6-17.9); MCH 29.0 pg (27.0-35.0); MCHC 34.2 g/dL (32.0-36.0); MCV 84.9 fL (80-100); MPV 7.7 fL (7.6-11.3); Nucleated RBC Absolute Count 0.0 (0-0); Nucleated Red Blood Cells % 0.0 % (0-0); RBC Red Blood Cell Count 4.36 M/uL (4.33-5.43); White Blood Count 8.50 thou/uL (4.3-10.9)
[2025-07-14 07:07] LABS: Anion Gap 4.9 mEq/L (5.0-15.0); BUN Blood Urea Nitrogen 11.0 mg/dL (7-18); Glucose Level 259.0 mg/dL (74-106); Potassium 3.9 mEq/L (3.5-5.1)
[2025-07-14] MEDS ORDERED: MIDAZOLAM HCL 2 MG/2 ML INJ ONE (12:56)
[2025-07-14] MEDS ORDERED: LIDOCAINE 2% MPF 5 ML VIAL ONE (12:56)
[2025-07-14] MEDS ORDERED: ONDANSETRON 4 MG/2 ML VIAL ONE (12:56)
[2025-07-14] MEDS ORDERED: FENTANYL CITR 100 MCG/2 ML ONE (12:56)
[2025-07-14] MEDS: LIDOCAINE HCL/EPINEPHRINE 20 ML MDV ONE (13:50)
[2025-07-14] MEDS ORDERED: NS 0.9% VIAL 10 ML ONE (13:56)
--- NOTE | 2025-07-14 14:06 | P.OP ---
Preoperative diagnosis: Infection / Osteomyelitis of 3rd toe of RIGHT Foot Postoperative diagnosis: Infection / Osteomyelitis of 3rd toe of RIGHT Foot Primary procedure: Amputation of Distal Phalanx of 3rd toe of RIGHT foot Anesthesia: GETA Estimated blood loss: <5cc Specimen: distal phalanx , cultures Findings: osteomyelitis, necrosis Complications: None Transferred to: Recovery Room Condition: Good
--- NOTE | 2025-07-14 15:39 | OP ---
Date of Procedure: 07/14/2025 Surgeon: Hussain Patel MD, Preoperative Diagnosis: Infection/osteomyelitis of third toe of the right foot. Postoperative Diagnosis: Infection/osteomyelitis of third toe of the right foot. Procedure Performed: Amputation of distal phalanx and third toe of the right foot. Anesthesia: General endotracheal. Estimated Blood Loss: Less than 5 cc. Specimen: Distal phalanx and this culture was sent for both aerobic and anaerobic speciation. Findings: Osteomyelitis and necrosis of the third toe of the right foot and the distal phalanx. Complications: None. Disposition: The patient was transferred to recovery room in good condition. Procedure In Detail: After informed consent was obtained, patient was brought to the operating room, prepped and draped in the usual sterile fashion. After adequate anesthesia was achieved, I inspect ed the third toe of the right foot which had pus emanating from the tip of this area. The bone had o bvious damage with fragmentation pattern in this area. I demarcated the area circumferentially aroun d the area to be transected at the distal phalanx as the patient had requested as much limb preservat ion as possible. After I made the circumferential incision circumferentially around, I used the elec trocautery to dissect down to the tissues. I T'd out the incision to allow for transection of the di stal phalanx. At this point, it was transected and sent off for pathologic examination. The area wa s copiously irrigated until all nonviable tissue was removed. Minimal hemostasis was required with e lectrocautery, at this point. After this was cleansed out appropriately and all nonviable tissue was removed, I reapproximated the edges of the toe using interrupted 3-0 nylon sutures and a sterile ganga ssing placed over top. The patient tolerated the procedure well without incident or complication, tr ansferred to PACU in good condition. All counts were correct at the end of the case. TK/MODL Voice ID: [id number] Report ID: [id number]
--- NOTE | 2025-07-14 16:50 | CON ---
Date of Consultation: 07/14/2025 Brief History Of Present Illness: The patient is a 65-year-old man known to me from previous interac tions who has a history of hypertension, hyperlipidemia, diabetes, who comes in with worsening swelli ng, tenderness, redness and drainage of the third toe of the right foot. He has had this area worked up before and refused amputation before in the past and came in with a similar complaint. He says shawna ramirez had been working too much lately, not taking care of the area, and as such, he has recurrence of hi s drainage, pain, tenderness of the same toe, and as such, he would like to have it debrided once aga in. Past Medical History: Asthma, hypertension, diabetes, hyperlipidemia. Past Surgical History: Right knee surgery and debridement of his third toe of his right foot in the past. Home Medications: Include Ventolin, Symbicort, Amaryl, Crestor, Januvia, Prinivil. Social History: He lives at home with his family. He denies alcohol or recreational drug use. He d enies smoking. Allergies: NO KNOWN DRUG ALLERGIES. Review of Systems: Ten-point review of systems other than HPI denies. Physical Examination: General: At the time of my examination, he is awake, alert, and oriented. Psychiatric: Appropriate, conversive. HEENT: He is normocephalic. His sclerae are anicteric. Mucous membranes are moist. Oropharynx is clear. Neck: Supple without JVD. Chest: Normal expansion and excursion. Cardiovascular: Regular rate and rhythm. Pulmonary: Clear to auscultation bilaterally. Abdomen: Soft. Extremities: Focused examination of extremity, right lower extremity has a cellulitis and drainage o f the third toe of the right foot which has abscess material draining out at the central aspect. It is swollen, tender, red, and draining consistent with significant infection in this area. There is d iscoloration of the area and cellulitis. Laboratory Data: Which reveals a white blood cell count of 8.5, hemoglobin 12.7, hematocrit 37.1, pl atelet count is 337. His PT is 31, INR is 1.1. Chemistry: Sodium 139, potassium 3.9, chloride 108, carbon dioxide is 30, BUN 11, creatinine 0.5, glucose is 259. He had an x-ray performed which was o fficially read as fracture versus postoperative changes in the third distal phalangeal tuft. Fragmen t involving the tuft is slightly displaced medially. Again, this could be postoperative or posttraum atic osteomyelitis. It is difficult to entirely exclude due to the underlying irregularity. Assessment And Plan: This is a 65-year-old male who comes in with infection on the third toe of the right foot once again. 1. IV fluid hydration. 2. Antibiotic coverage. 3. I have explained the risks, benefits, alternatives, and recommended an amputation of this toe. Ho wever, patient has refused amputation with the exception of possibly the tip of this toe. I have exp lained the risks, benefits, and alternatives of this procedure including, but not limited to, bleedin g, infection, damage to surrounding tissue, need for further operation procedures. If the patient do es not have the adequate area of infection removed, this will likely not to heal, and as such, I have recommended amputation of the toe. However, patient is currently refusing this and only will agree to a distal amputation at this point and debridement. As such, we will proceed as indicated. Thank you for this interesting consult. JASPER/KOLTON Voice ID: [id number] Report ID: [id number]
[2025-07-14 21:55] VITALS: O2SAT 91
--- NOTE | 2025-07-15 01:18 | P.PN ---
Date of Service: 07/13/25 Subjective Physical Examination - Vitals reviewed - Physical Exam General: Alert, In no apparent distress, Oriented x3 Respiratory: Clear to auscultation bilaterally, Normal air movement Cardiovascular: No edema, Normal pulses, Regular rate/rhythm, Normal S1 S2, No gallops, No rubs, No murmurs Gastrointestinal: Normal bowel sounds, Soft and benign, W/out hepatomegaly, No ascites, No tenderness, No masses, No rebound, No guarding Musculoskeletal: No clubbing, Swelling (Right foot with diabetic wound, cellulitis.) Integumentary: No cyanosis, Tenderness/swelling (Right foot diabetic wound third digit, cellulitis), Erythema, Warmth Neurological: Normal gait, Normal speech, Normal strength at 5/5 x4 extr, Normal tone, Sensation intact, Cranial nerves 3-12 intact, Normal reflexes 2+, Normal affect Assessment and Plan - Assessment/Plan Patient is a pleasant 65-year-old male admitted inpatient with diagnosis of right foot cellulitis, diabetic wound right foot third digit which appears necrotic, will need to be debrided by Dr. patel in AM. (1) Right foot cellulitis/diabetic wound right foot third digit. -N.p.o. after midnight. -Consult Dr. Patel, for surgery debridement in AM. -Vancomycin 1.75 g every 12 hours adjusted by pharmacy. -Ancef 1 g IV every 8 hours. -Morphine 4 mg as needed IV every 4 hours. -Consult wound care team. -Order for wound culture diabetic wound right foot third digit. (2) Chronic type 2 diabetes mellitus. -Order A1c to evaluate patient current diabetic status. Since patient does not currently have a PCP it appears he has not been managing his diabetes appropriately. -Ordered metformin 1000 mg p.o. twice daily. -Order moderate SS/ACHS. (3) Chronic asthma. - Albuterol 2.5 mg nebulizer as needed every 6 hours. (4) Explained the entire treatment plan to the patient, solicit questions answered and voiced understanding. Discharge Plan: Home Plan to discharge in: Greater than 2 days - Advance Directives Does patient have a Living Will: No Does patient have a Durable POA for Healthcare: No - Code Status/Comfort Care Code Status Assessed: Yes Code Status: Full Code Critical Care: No Time Spent Managing Pts Care (In Minutes): 35
[2025-07-15 05:12] LABS: Absolute Lymphocytes (CBC) 2.4 K/uL (0.7-4.9); Hematocrit 36.8 % (39.6-49.0); Hemoglobin 12.9 g/dL (13.6-17.9); MCH 29.4 pg (27.0-35.0); MCHC 35.2 g/dL (32.0-36.0); MCV 83.7 fL (80-100); MPV 7.6 fL (7.6-11.3); Nucleated RBC Absolute Count 0.0 (0-0); Nucleated Red Blood Cells % 0.0 % (0-0); RBC Red Blood Cell Count 4.39 M/uL (4.33-5.43); White Blood Count 11.00 thou/uL (4.3-10.9)
[2025-07-15 05:28] LABS: Anion Gap 7.9 mEq/L (5.0-15.0); BUN Blood Urea Nitrogen 9.0 mg/dL (7-18); Glucose Level 151.0 mg/dL (74-106); Potassium 3.9 mEq/L (3.5-5.1)
[2025-07-15 13:00] VITALS: BP 157/93; TEMP 98.6
== END 2025-07-15 16:04 | disposition home or self-care (01) | DRG 617 ==
LOC: ER 15:23 → ERHOLD 20:13 → 2ND 20:24
PROVIDERS: ADMIT Hospitalist; ATTEND Hospitalist
PROC: 0Y6T0Z3 Detachment at Right 3rd Toe, Low, Open Approach (ICD-10-PCS; principal; 2025-07-14 14:45)
DX: E11.69 Type 2 diabetes mellitus with other specified complication (principal); L03.115 Cellulitis of right lower limb; M86.8X7 Other osteomyelitis, ankle and foot; Z79.84 Long term (current) use of oral hypoglycemic drugs; Z79.899 Other long term (current) drug therapy; Z79.891 Long term (current) use of opiate analgesic; Z91.018 Allergy to other foods; J45.909 Unspecified asthma, uncomplicated; Z79.51 Long term (current) use of inhaled steroids; E78.5 Hyperlipidemia, unspecified; I10 Essential (primary) hypertension; E11.65 Type 2 diabetes mellitus with hyperglycemia
CPT/HCPCS: 36415; 80048; 80053; 80202; 82947; 83605; 84484; 85025; 85610; 85730; 87040; 87070; 87075; 87205; 88304; 88305; 88311; 93005; 96365; 96366; 99285; A4216; J0690; J1815; J2003; J2250; J2405; J2704; J3010; J3370; J7030; J7040; J7050